=== PATIENT | male | born 1960 | race Caucasian/White ===

== ENCOUNTER 2017-04-30 08:00 | Outpatient (CLI) | payer MEDICAID ==
[2017-04-30 13:05] LABS: BASOPHILS # (AUTO) 0.1 10^3/uL (0.0-0.1); BASOPHILS % (AUTO) 0.8 %; EOSINOPHILS # (AUTO) 0.5 10^3/uL (0.0-0.7); EOSINOPHILS % (AUTO) 6.9 %; HGB - HEMOGLOBIN 14.2 g/dL (14.0-18.0); LYMPHOCYTES # (AUTO) 2.3 10^3/uL (1.5-3.5); LYMPHOCYTES % (AUTO) 33.7 %; MEAN CORPUSCULAR HEMOGLOBIN 30.1 pg (27.0-31.0); MEAN CORPUSCULAR HGB CONC 33.6 g/dL (32.0-36.0); MEAN CORPUSCULAR VOLUME 89.5 fL (80.0-94.0); MEAN PLATELET VOLUME 9.2 fL (7.4-11.4); MONOCYTES # (AUTO) 0.5 10^3/uL (0.0-1.0); MONOCYTES % (AUTO) 7.2 %; NEUTROPHILS # (AUTO) 3.6 10^3/uL (1.5-6.6); NEUTROPHILS % (AUTO) 51.4 %; PLT - PLATELET COUNT 202 10^3/uL (130-450); RED BLOOD COUNT 4.71 10^6/uL (4.70-6.10); RED CELL DISTRIBUTION WIDTH 13.9 % (12.0-15.0)
[2017-04-30 13:13] LABS: HB2 TOTAL 15.5 g/dL; HEMOGLOBIN A1C 0.77 g/dL; HEMOGLOBIN A1C % 6.7 % (4.6-6.2)
[2017-04-30 13:16] LABS: ALBUMIN 4.1 g/dL (3.2-5.5); ALBUMIN/GLOBULIN RATIO 1.2 (1.0-2.2); ALKALINE PHOSPHATASE 52 IU/L (42-121); ALT ALANINE AMINOTRANSFERASE 25 IU/L (10-60); AST ASPARTATE AMINOTRANSFERASE 18 IU/L (10-42); BILIRUBIN,TOTAL 0.6 mg/dL (0.2-1.0); BUN - BLOOD UREA NITROGEN 16 mg/dL (6-20); CALCIUM 9.1 mg/dL (8.5-10.3); CARBON DIOXIDE - CO2 24 mmol/L (21-32); CHLORIDE 103 mmol/L (101-111); CHOL/HDL RATIO 4.4 (<5.0); CHOLESTEROL 169 mg/dL; CREATININE 0.8 mg/dL (0.6-1.2); GFR - MDRD 100 (>89); GLUCOSE 122 mg/dL (70-100); HDL CHOLESTEROL 38 mg/dL; LDL CHOLESTEROL,CALCULATED 109 mg/dL; LDL/HDL RATIO 2.9 (<3.6); SODIUM 134 mmol/L (135-145); TOTAL PROTEIN 7.6 g/dL (6.7-8.2); VLDL CHOLESTEROL 22 mg/dL
== END 2017-04-30 08:01 ==
LOC: LAB.N 08:00
PROVIDERS: ATTEND Nurse Practitioner
DX: E11.9 Type 2 diabetes mellitus without complications (principal); I10 Essential (primary) hypertension; F41.9 Anxiety disorder, unspecified
CPT/HCPCS: 36415; 80053; 80061; 82043; 82306; 83036; 83721; 84153; 84443; 85025

== ENCOUNTER → 2017-08-27 | Outpatient (CLI) | payer MEDICAID | LOC: RT.N 12:13 | PROVIDERS: ATTEND Nurse Practitioner | DX: R07.9 Chest pain, unspecified (principal) | CPT/HCPCS: 93005 ==

== ENCOUNTER 2017-09-25 13:50 | Outpatient (CLI) | payer MEDICAID ==
[2017-09-25 18:55] LABS: BASOPHILS % (AUTO) 0.5 %; EOSINOPHILS # (AUTO) 0.6 10^3/uL (0.0-0.7); EOSINOPHILS % (AUTO) 8.6 %; HGB - HEMOGLOBIN 14.7 g/dL (14.0-18.0); LYMPHOCYTES # (AUTO) 2.2 10^3/uL (1.5-3.5); LYMPHOCYTES % (AUTO) 29.6 %; MEAN CORPUSCULAR HEMOGLOBIN 30.5 pg (27.0-31.0); MEAN CORPUSCULAR VOLUME 92.2 fL (80.0-94.0); MEAN PLATELET VOLUME 9.2 fL (7.4-11.4); MONOCYTES # (AUTO) 0.6 10^3/uL (0.0-1.0); NEUTROPHILS # (AUTO) 3.9 10^3/uL (1.5-6.6); NEUTROPHILS % (AUTO) 53.3 %; PLT - PLATELET COUNT 243 10^3/uL (130-450); RED BLOOD COUNT 4.81 10^6/uL (4.70-6.10); RED CELL DISTRIBUTION WIDTH 14.2 % (12.0-15.0); WHITE BLOOD COUNT 7.3 x10^3/uL (4.8-10.8)
[2017-09-25 19:15] LABS: BILIRUBIN,TOTAL 0.8 mg/dL (0.2-1.0); CALCIUM 9.3 mg/dL (8.5-10.3); CREATININE 0.8 mg/dL (0.6-1.2); TOTAL PROTEIN 7.9 g/dL (6.7-8.2)
[2017-09-25 19:17] LABS: HB2 TOTAL 15.9 g/dL; HEMOGLOBIN A1C 1.07 g/dL; HEMOGLOBIN A1C % 8.3 % (4.6-6.2)
== END 2017-09-25 13:51 ==
LOC: LAB.N 13:50
PROVIDERS: ATTEND Nurse Practitioner
DX: E11.9 Type 2 diabetes mellitus without complications (principal); F41.9 Anxiety disorder, unspecified
CPT/HCPCS: 36415; 80053; 82043; 82306; 83036; 84443; 85025

== ENCOUNTER 2018-01-27 11:13 | Outpatient (CLI) | payer MEDICAID ==
[2018-01-27 19:19] LABS: HB2 TOTAL 15.5 g/dL; HEMOGLOBIN A1C 1.03 g/dL; HEMOGLOBIN A1C % 8.2 % (4.6-6.2)
[2018-01-27 19:21] LABS: ALBUMIN 4.4 g/dL (3.2-5.5); ALBUMIN/GLOBULIN RATIO 1.5 (1.0-2.2); ALKALINE PHOSPHATASE 72 IU/L (42-121); ALT ALANINE AMINOTRANSFERASE 21 IU/L (10-60); AST ASPARTATE AMINOTRANSFERASE 16 IU/L (10-42); BILIRUBIN,TOTAL 0.5 mg/dL (0.2-1.0); BUN - BLOOD UREA NITROGEN 15 mg/dL (6-20); CALCIUM 8.8 mg/dL (8.5-10.3); CARBON DIOXIDE - CO2 24 mmol/L (21-32); CHLORIDE 103 mmol/L (101-111); CHOL/HDL RATIO 3.7 (<5.0); CHOLESTEROL 122 mg/dL; CREATININE 0.8 mg/dL (0.6-1.2); GFR - MDRD 100 (>89); GLUCOSE 147 mg/dL (70-100); HDL CHOLESTEROL 33 mg/dL; LDL CHOLESTEROL,CALCULATED 68 mg/dL; LDL/HDL RATIO 2.1 (<3.6); SODIUM 135 mmol/L (135-145); TOTAL PROTEIN 7.4 g/dL (6.7-8.2); VLDL CHOLESTEROL 21 mg/dL
== END 2018-01-27 11:14 | disposition home or self-care (01) ==
LOC: LAB.N 11:13
PROVIDERS: ATTEND Nurse Practitioner
DX: E11.9 Type 2 diabetes mellitus without complications (principal)
CPT/HCPCS: 36415; 80053; 80061; 82043; 83036; 83721; 84443

== ENCOUNTER 2018-11-17 14:21 | Emergency (ER) | payer MEDICAID ==
[2018-11-17 14:57] LABS: BILIRUBIN,URINE NEGATIVE (NEGATIVE); GLUCOSE, URINE (UA) NEGATIVE (NEGATIVE); KETONES,URINE (UA) 15 mg/dL (NEGATIVE); LEUKOCYTE ESTERASE, URINE NEGATIVE (NEGATIVE); NITRITE,URINE NEGATIVE (NEGATIVE); OCCULT BLOOD,URINE TRACE-LYSE (NEGATIVE); PROTEIN,URINE NEGATIVE (NEGATIVE); UROBILINOGEN,URINE 0.2 (NORMAL) E.U./dL (NORMAL)
[2018-11-17 15:04] LABS: CLARITY,URINE CLEAR (CLEAR)
--- NOTE | 2018-11-17 16:28 | ED Physician Documentation ---
PD HPI NVD - Stated complaint Stated Complaint: DIZZY/SWEATING/MALE - Chief complaint Chief Complaint: General - History obtained from History obtained from: Patient - History of Present Illness Timing - onset: How many days ago (few) Timing - duration: Days (few) Timing - details: Gradual onset, Still present Associated symptoms: Fever (subjective fever and chills), Abdominal pain (left sided), Loss of appetite. No: Melena, Dysuria, Hematuria (but noted dark urine.) Contributing factors: No: Sick contact, Bad food, Travel Similar symptoms before: Has not had sx before Recently seen: Not recently seen Review of Systems Constitutional: reports: Fever, Chills, Myalgias (particularly leg muscles aches) Nose: denies: Rhinorrhea / runny nose, Congestion Throat: denies: Sore throat Respiratory: denies: Cough GI: reports: Abdominal Pain, Nausea, Vomiting. denies: Diarrhea : denies: Dysuria, Frequency Neurologic: reports: Generalized weakness. denies: Focal weakness, Numbness PD PAST MEDICAL HISTORY - Past Medical History Cardiovascular: None Respiratory: None Neuro: None Endocrine/Autoimmune: Type 2 diabetes (had been off meds for awhile and then resumed taking prior Rx of Metformin about a week ago. ) - Present Medications Home Medications: Ambulatory Orders Medication Instructions Recorded Confirmed Amox/Clav 875/125 [Augmentin] 1 each PO Q12H #14 tablet 11/17/18 Naproxen 500 mg PO BID #20 tablet 11/17/18 Ondansetron Odt [Zofran] 4 mg TL Q6H PRN #20 tablet 11/17/18 dexAMETHasone [Decadron] 4 mg PO DAILY #5 tablet 11/17/18 - Allergies Allergies/Adverse Reactions: Allergies Allergy/AdvReac Type Severity Reaction Status Date / Time benzonatate Allergy Anaphylaxis Verified 11/17/18 14:24 [From Marina Cooper] PD ED PE NORMAL - Vitals Vital signs reviewed: Yes - General General: Alert and oriented X 3, No acute distress, Well developed/nourished - HEENT HEENT: Pharynx benign - Neck Neck: Supple, no meningeal sign, No adenopathy - Cardiac Cardiac: RRR, No murmur - Respiratory Respiratory: Clear bilaterally - Abdomen Abdomen: Non distended, Other (tender LLQ with guarding but no rebound. Some percussiont tenderness. ). No: Normal bowel sounds (diminished) - Male Male : Deferred - Rectal Rectal: Deferred - Back Back: No CVA TTP - Derm Derm: Normal color, Warm and dry - Extremities Extremities: No deformity, No tenderness to palpate, Normal ROM s pain, No edema, No calf tenderness / cord - Neuro Neuro: Alert and oriented X 3, No motor deficit, Normal speech Results - Vitals Vitals: Vital Signs - 24 hr 11/17/18 11/17/18 11/17/18 14:24 18:20 19:11 Temperature 36.6 C Heart Rate 130 H 89 78 Respiratory 16 19 19 Rate Blood Pressure 134/100 H 130/77 124/78 O2 Saturation 96 97 99 Oxygen O2 Source Room air - Labs Labs: Laboratory Tests 11/17/18 11/17/18 11/17/18 14:27 14:39 16:59 WBC 18.2 H RBC 5.05 Hgb 15.1 Hct 46.6 MCV 92.3 MCH 29.9 MCHC 32.4 RDW 13.5 Plt Count 212 MPV 11.0 Neut # (Auto) 15.3 H Lymph # (Auto) 1.2 L [place] # (Auto) 1.5 H Eos # (Auto) 0.0 Baso # (Auto) 0.1 Absolute Nucleated RBC 0.00 Nucleated RBC % 0.0 Sodium Potassium Chloride Carbon Dioxide Anion Gap BUN Creatinine Estimated GFR (MDRD) Glucose POC Whole Bld Glucose 156 H Lactic Acid Calcium Magnesium Total Bilirubin AST ALT Alkaline Phosphatase Total Creatine Kinase Total Protein Albumin Globulin Albumin/Globulin Ratio Lipase Urine Color YELLOW Urine Clarity CLEAR Urine pH 6.0 Ur Specific [place] <=1.005 Urine Protein NEGATIVE Urine Glucose (UA) NEGATIVE Urine Ketones 15 H Urine Occult Blood TRACE-LYSE Urine Nitrite NEGATIVE Urine Bilirubin NEGATIVE Urine Urobilinogen 0.2 (NORMAL) Ur Leukocyte Esterase NEGATIVE Ur Microscopic Review NOT INDICATED Urine Culture Comments NOT INDICATED 11/17/18 11/17/18 16:59 16:59 WBC RBC Hgb Hct MCV MCH MCHC RDW Plt Count MPV Neut # (Auto) Lymph # (Auto) [place] # (Auto) Eos # (Auto) Baso # (Auto) Absolute Nucleated RBC Nucleated RBC % Sodium 134 L Potassium 3.8 Chloride 101 Carbon Dioxide 20 L Anion Gap 13.0 BUN 14 Creatinine 0.9 Estimated GFR (MDRD) 87 L Glucose 145 H POC Whole Bld Glucose Lactic Acid 0.9 Calcium 9.3 Magnesium 1.7 Total Bilirubin 1.5 H AST 12 ALT 16 Alkaline Phosphatase 62 Total Creatine Kinase 60 Total Protein 8.3 H Albumin 4.1 Globulin 4.2 Albumin/Globulin Ratio 1.0 Lipase 22 Urine Color Urine Clarity Urine pH Ur Specific [place] Urine Protein Urine Glucose (UA) Urine Ketones Urine Occult Blood Urine Nitrite Urine Bilirubin Urine Urobilinogen Ur Leukocyte Esterase Ur Microscopic Review Urine Culture Comments - Rads (name of study) abd CT Radiology: Prelim report reviewed (diverticula without diverticulitis evident. ), See rad report PD MEDICAL DECISION MAKING - ED course Complexity details: reviewed results (has pain LLQ and elevated WBC, with nausea and some loose stools. Diverticula on CT. Presume some diverticulitis based on symptoms and labs. ), re-evaluated patient (feeling much better with fluids and meds, particularly the ofirmev. ), considered differential, d/w patient Departure - Departure Disposition: 01 Home, Self Care Clinical Impression: Left sided abdominal pain Leukocytosis Qualifiers: Leukocytosis type: unspecified Qualified Code(s): D72.829 - Elevated white blood cell count, unspecified Nausea & vomiting Qualifiers: Vomiting type: unspecified Vomiting Intractability: non-intractable Qualified Code(s): R11.2 - Nausea with vomiting, unspecified Condition: Stable Record reviewed to determine appropriate education?: Yes Instructions: ED Diverticulitis Prescriptions: Amox/Clav 875/125 [Augmentin] 1 each PO Q12H #14 tablet dexAMETHasone [Decadron] 4 mg PO DAILY #5 tablet Naproxen 500 mg PO BID #20 tablet Ondansetron Odt [Zofran] 4 mg TL Q6H PRN #20 tablet PRN Reason: Nausea / Vomiting Comments: Your CT scan showed some diverticula without any obvious diverticulitis (obvious local infection). However your symptoms with the left abdominal tenderness, nausea and less appetite, elevated white count and illness are suggestive of a diverticulitis and so I would treat it as that. Augmentin antibiotic twice daily for a week. Ondansetron if needed for nausea. Naproxen anti-inflammatory and Decadron steroid anti-inflammatory as directed for inflammation. Add Tylenol if needed for pains. Discharge Date/Time: 11/17/18 19:11
[2018-11-17] MEDS ORDERED: ONDANSETRON 4 MG/2 ML VIAL IVP STA (16:42)
[2018-11-17] MEDS ORDERED: SODIUM CHLORIDE 0.9% 1,000 ML IV ONE ×2 (16:42→16:44)
[2018-11-17] MEDS ORDERED: KETOROLAC 15 MG/ML VIAL IVP STA (16:43)
[2018-11-17] MEDS ORDERED: FAMOTIDINE 20 MG/2 ML VIAL IVP STA (16:43)
[2018-11-17 17:07] LABS: BASOPHILS # (AUTO) 0.1 10^3/uL (0.0-0.1); BASOPHILS % (AUTO) 0.3 %; EOSINOPHILS % (AUTO) 0.2 %; HGB - HEMOGLOBIN 15.1 g/dL (14.0-18.0); LYMPHOCYTES # (AUTO) 1.2 10^3/uL (1.5-3.5); LYMPHOCYTES % (AUTO) 6.7 %; MEAN CORPUSCULAR HEMOGLOBIN 29.9 pg (27.0-31.0); MEAN CORPUSCULAR HGB CONC 32.4 g/dL (32.0-36.0); MEAN CORPUSCULAR VOLUME 92.3 fL (80.0-94.0); MONOCYTES # (AUTO) 1.5 10^3/uL (0.0-1.0); MONOCYTES % (AUTO) 8.1 %; NEUTROPHILS # (AUTO) 15.3 10^3/uL (1.5-6.6); NEUTROPHILS % (AUTO) 84.1 %; PLT - PLATELET COUNT 212 10^3/uL (130-450); RED BLOOD COUNT 5.05 10^6/uL (4.70-6.10); RED CELL DISTRIBUTION WIDTH 13.5 % (12.0-15.0); WHITE BLOOD COUNT 18.2 x10^3/uL (4.8-10.8)
--- NOTE | 2018-11-17 17:08 | XRAY Report ---
Reason: cough and dyspnea Procedure Date: 11/17/2018 Accession Number: [id number] / [id number] Procedure: XR - Chest 1 View X-Ray CPT Code: 84332 FULL RESULT: EXAM: CHEST RADIOGRAPHY EXAM DATE: 11/17/2018 04:54 PM. CLINICAL HISTORY: Cough and dyspnea. Abdomen pain. COMPARISON: XR CHEST PA AND LAT 10/08/2009 9:42 PM. TECHNIQUE: 1 view. FINDINGS: Lungs/Pleura: Blunting of the right calcific angle suggesting a small effusion. No focal opacities evident. No left pleural effusion. No pneumothorax. Mediastinum: Within exam limitations, the cardiomediastinal contour is normal. Other: None. IMPRESSION: Small right pleural effusion. RADIA
[2018-11-17 17:20] LABS: ALBUMIN 4.1 g/dL (3.2-5.5); BILIRUBIN,TOTAL 1.5 mg/dL (0.2-1.0); CALCIUM 9.3 mg/dL (8.5-10.3); CREATININE 0.9 mg/dL (0.6-1.2); MAGNESIUM 1.7 mg/dL (1.7-2.8); TOTAL PROTEIN 8.3 g/dL (6.7-8.2)
[2018-11-17] MEDS ORDERED: IOVERSOL 320 100 ML VIAL IVP ONE ×2 (17:49)
[2018-11-17] MEDS ORDERED: ACETAMINOPHEN 1,000 MG/100 ML 100 ML IV STA (18:25)
--- NOTE | 2018-11-17 18:39 | CT Report ---
Reason: left lower abd pain Procedure Date: 11/17/2018 Accession Number: [id number] / [id number] Procedure: CT - Abdomen/Pelvis W CPT Code: FULL RESULT: EXAM: CT ABDOMEN AND PELVIS EXAM DATE: 11/17/2018 05:55 PM. CLINICAL HISTORY: Left lower abd pain. COMPARISONS: None. TECHNIQUE: Routine helical CT imaging was performed through the abdomen and pelvis. IV contrast: OPTI 320 100ML. Enteric contrast: No. Reconstructions: Coronal and sagittal. In accordance with CT protocol optimization, one or more of the following dose reduction techniques were utilized for this exam: automated exposure control, adjustment of mA and/or KV based on patient size, or use of iterative reconstructive technique. FINDINGS: Lung Bases: A small right pleural effusion. Liver: Normal. No masses. Gallbladder/Bile Ducts: Unremarkable. Spleen: Normal. Pancreas: Normal. Adrenal Glands: Normal. Kidneys: Normal. No masses or hydronephrosis. Peritoneal Cavity/Bowel: Normal. No free fluid, free air or adenopathy. No masses or acute inflammatory process. A few colonic diverticula however no diverticulitis. The appendix is well visualized and normal. Pelvic Organs: Normal. The bladder and visualized pelvic organs are within normal limits. Vasculature: No aneurysms or other significant abnormality. Bones: No significant abnormality. Other: None. IMPRESSION: Small right pleural effusion. No acute abdominal pathology. Normal appendix in right lower quadrant. RADIA
[2018-11-17] MEDS ORDERED: cefTRIAXone 1 GM VIAL IVP STA (18:50)
[2018-11-17 19:12] VITALS: BP 124/78
== END 2018-11-17 19:11 | disposition home or self-care (01) ==
LOC: ED 14:21
DX: R10.32 Left lower quadrant pain (principal); R11.2 Nausea with vomiting, unspecified; D72.829 Elevated white blood cell count, unspecified; K57.30 Diverticulosis of large intestine without perforation or abscess without bleeding; E11.9 Type 2 diabetes mellitus without complications; Z79.84 Long term (current) use of oral hypoglycemic drugs
CPT/HCPCS: 36415; 71045; 74177; 80053; 81003; 82550; 83605; 83690; 83735; 85025; 87040; 96361; 96374; 96375; 99284; 99285; J0131; Q9967; 81001; 87086

== ENCOUNTER 2019-02-12 16:41 | Emergency (ER) | payer MEDICAID ==
[2019-02-12 16:52] VITALS: BP 149/79
[2019-02-12] MEDS ORDERED: IPRATROPIUM/ALBUTEROL 3 ML NEB INH STA (17:08)
--- NOTE | 2019-02-12 17:13 | ED Physician Documentation ---
History of Present Illness - Stated complaint Stated Complaint: LT KNEE PX/SLIPPED - Chief complaint Chief Complaint: General - History obtained from History obtained from: Patient - History of Present Illness Timing: How many weeks ago (1) Pain level max: 8 Pain level now: 8 - Additonal information Additional information: 58-year-old male presents the emergency department with a left knee injury approximately 1 week ago. Feels like the knee locks. Has difficulty with extension and walking. Has not had swelling. States main pain is on the medial aspect of the knee. He also complains of a cough and rhinorrhea and congestion for the past week or so. Everybody at home has been sick with the same. He does smoke, states he is not smoking as much since it is hard for him to breathe. Review of Systems Constitutional: denies: Fever, Chills GI: denies: Vomiting, Diarrhea Skin: denies: Rash Musculoskeletal: denies: Neck pain, Back pain Neurologic: denies: Headache PD PAST MEDICAL HISTORY - Past Medical History Cardiovascular: None Respiratory: None Neuro: None Endocrine/Autoimmune: Type 2 diabetes (had been off meds for awhile and then resumed taking prior Rx of Metformin about a week ago. ) - Present Medications Home Medications: Ambulatory Orders Medication Instructions Recorded Confirmed Amox/Clav 875/125 [Augmentin] 1 each PO Q12H #14 tablet 11/17/18 Naproxen 500 mg PO BID #20 tablet 11/17/18 Ondansetron Odt [Zofran] 4 mg TL Q6H PRN #20 tablet 11/17/18 dexAMETHasone [Decadron] 4 mg PO DAILY #5 tablet 11/17/18 Albuterol Sulfate [Proair Hfa 1 - 2 puffs INH Q4H PRN #1 inhaler 02/12/19 Inhaler] Azithromycin [Zithromax] 0 mg PO DAILY #6 tablet 02/12/19 Hydrocodone/Acetaminophen 1 - 2 each PO Q6H PRN #14 tablet 02/12/19 [Hydrocodon-Acetaminophen 5-325] Ibuprofen [Motrin] 800 mg PO Q8H PRN #30 tablet 02/12/19 - Allergies Allergies/Adverse Reactions: Allergies Allergy/AdvReac Type Severity Reaction Status Date / Time benzonatate Allergy Anaphylaxis Verified 02/12/19 16:50 [From Tessalon Perles] - Social History Does the pt smoke?: Yes Smoking Status: Current every day smoker PD ED PE NORMAL - Vitals Vital signs reviewed: Yes - General General: Alert and oriented X 3, No acute distress - HEENT HEENT: PERRL, Ears normal, Moist mucous membranes, Pharynx benign - Neck Neck: Supple, no meningeal sign, No bony TTP - Cardiac Cardiac: RRR, Strong equal pulses - Respiratory Respiratory: No respiratory distress, Other (rhonchi and wheezing B) - Abdomen Abdomen: Soft, Non tender, Non distended - Derm Derm: Warm and dry - Extremities Extremities: Other (L knee - TTP over the medial joint line. no effusion. Click when extending the knee. ACL, MCL, LCL PCL intact. NVI. Pain with meniscus testing on the medial aspect of the knee) - Neuro Neuro: Alert and oriented X 3 Results - Vitals Vitals: Vital Signs - 24 hr 02/12/19 02/12/19 16:50 17:39 Temperature 36.5 C Heart Rate 94 92 Respiratory 17 20 Rate Blood Pressure 149/79 H O2 Saturation 97 Oxygen O2 Source Room air - Rads (name of study) cxr Radiology: Prelim report reviewed, EMP read contemporaneously, See rad report (1. Negative for acute cardiopulmonary process. 2. Inferior right hemithorax pleural fluid versus pleural fibrosis. ) L knee xray Radiology: Prelim report reviewed, EMP read contemporaneously, See rad report (Soft tissue swelling. ) PD MEDICAL DECISION MAKING - ED course Complexity details: reviewed results, re-evaluated patient, considered differential, d/w patient ED course: Patient appears to likely have a meniscus injury on the left knee. Placed in a hinged knee brace, 10 to 40 degrees. He feels better in this. He also appears to be having a COPD flare. We will place on antibiotics and prescribe albuterol for home. He is well-appearing, nontoxic. Afebrile. Patient and family counseled regarding signs and symptoms for which I believe and urgent re- evaluation would be necessary. Patient with good understanding of and agreement to plan and is comfortable going home at this time This document was made in part using voice recognition software. While efforts are made to proofread this document, sound alike and grammatical errors may occur. Departure - Departure Disposition: 01 Home, Self Care Clinical Impression: Meniscus, medial, derangement Qualifiers: Laterality: left Qualified Code(s): M23.304 - Other meniscus derangements, unspecified medial meniscus, left knee Pneumonia Qualifiers: Pneumonia type: due to unspecified organism Laterality: unspecified laterality Lung location: unspecified part of lung Qualified Code(s): J18.9 - Pneumonia, unspecified organism Condition: Good Instructions: ED Meniscal Injury Knee Poss, ED Pneumonia Adult Follow-Up: James Dumont MD [Provider Admit Priv/Credential] - Within 1 week Hill Will PA-C [Primary Care Provider] - Within 1 week Prescriptions: Albuterol Sulfate [Proair Hfa Inhaler] 1 - 2 puffs INH Q4H PRN #1 inhaler PRN Reason: Shortness Of Air/Wheezing Azithromycin [Zithromax] 0 mg PO DAILY #6 tablet Hydrocodone/Acetaminophen [Hydrocodon-Acetaminophen 5-325] 1 - 2 each PO Q6H PRN #14 tablet PRN Reason: pain Ibuprofen [Motrin] 800 mg PO Q8H PRN #30 tablet PRN Reason: PAIN &/OR FEVER Comments: Take all antibiotics until gone. Return if you worsen. Follow-up with orthopedics for further care of your knee. Continue to wear the brace at home. This will help stabilize the joint. Do not drink alcohol or drive while on narcotic pain medicine. Note that many narcotic pain relievers also contain tylenol/acetaminophen. Please ensure that your total dose of acetaminophen from all sources does not exceed 3 grams (3000mg) per day. You may constipated on this medication, take a stool softener such as "Colace" twice a day while you are on it. Also recommend a [id number] laxative such as senna or MiraLAX any day that you do not have a bowel movement. If you received narcotic pain medication in the emergency department, do not drive or operate machinery for the next 24 hours.
[2019-02-12] MEDS ORDERED: oxyCODONE 5 MG TABLET PO STA (17:25)
--- NOTE | 2019-02-12 17:48 | XRAY Report ---
Reason: fall knee pain Procedure Date: 02/12/2019 Accession Number: [id number] / [id number] Procedure: XR - Knee 4 View LT CPT Code: Final Report FULL RESULT: EXAM: LEFT KNEE RADIOGRAPHY EXAM DATE: 02/12/2019 05:22 PM. CLINICAL HISTORY: Fall knee pain. COMPARISON: None. TECHNIQUE: 4 views, including oblique views. FINDINGS: Bones: Normal. No fractures or bone lesions. Joints: Normal. No effusion. No subluxations. Soft Tissues: Mild soft tissue swelling. IMPRESSION: Soft tissue swelling. RADIA
--- NOTE | 2019-02-12 17:51 | XRAY Report ---
Reason: cough, wheeze Procedure Date: 02/12/2019 Accession Number: [id number] / [id number] Procedure: XR - Chest 2 View X-Ray CPT Code: 93153 Final Report FULL RESULT: EXAM: CHEST RADIOGRAPHY EXAM DATE: 02/12/2019 05:23 PM. CLINICAL HISTORY: Cough, wheeze. COMPARISON: CHEST 1 VIEW 11/17/2018 4:38 PM XR CHEST PA AND LAT 10/08/2009 9:42 PM. TECHNIQUE: 2 views. FINDINGS: Lungs/Pleura: No focal opacities evident. No pleural effusion. No pneumothorax. Normal volumes. Inferior right hemithorax pleural fibrosis versus small right pleural fluid. Mediastinum: Heart and mediastinal contours are unremarkable. Other: Ossification of the anterior longitudinal ligament consistent with diffuse idiopathic skeletal hyperostosis. IMPRESSION: 1. Negative for acute cardiopulmonary process. 2. Inferior right hemithorax pleural fluid versus pleural fibrosis. RADIA
== END 2019-02-12 18:01 | disposition home or self-care (01) ==
LOC: ED 16:41
DX: M23.304 Other meniscus derangements, unspecified medial meniscus, left knee (principal); J18.9 Pneumonia, unspecified organism; E11.9 Type 2 diabetes mellitus without complications; Z79.84 Long term (current) use of oral hypoglycemic drugs; F17.200 Nicotine dependence, unspecified, uncomplicated
CPT/HCPCS: 71046; 73564; 94640; 99284; A9270

== ENCOUNTER 2019-03-01 16:55 | Outpatient (CLI) | payer MEDICAID ==
--- NOTE | 2019-03-02 06:58 | MRI Report ---
Reason: SPONTANEOUS DISRUPTION OF MEDIAL COLLATERAL LIGAME Procedure Date: 03/01/2019 Accession Number: [id number] / [id number] Procedure: MRI - Knee LT W/O CPT Code: Final Report FULL RESULT: EXAM: LEFT KNEE MRI WITHOUT CONTRAST EXAM DATE: 03/01/2019 05:41 PM CLINICAL HISTORY: Spontaneous disruption of medial collateral ligament. Medial knee pain. No trauma. No surgery. COMPARISON: Radiographs 02/12/2019. TECHNIQUE: Multiplanar, multisequence T1-weighted and fluid-sensitive sequences of the knee without contrast. Other: None. FINDINGS: Bones: No fracture or bone lesion. Minimal reactive edema in medial compartment. Mild reactive cysts at the tibial spines. Articular Cartilage: Shallow partial-thickness cartilage loss medial and lateral compartments. Medial Meniscus: Horizontal tear contacts the inferior articular surface body and posterior horn. Lateral Meniscus: The lateral meniscus is intact. Cruciate Ligaments: The anterior and posterior cruciate ligaments are intact. Collateral Ligaments: Minimal thickening proximal aspect intact medial collateral ligament. Minimal edema distally. Lateral collateral ligament normal in morphology. Tendons: Mild quadriceps and minimal patellar tendinopathy. Popliteus and semimembranosus tendons unremarkable. Musculature: No edema or fatty atrophy. Other: Minimal joint effusion. Minimal popliteal cyst with leak. No loose bodies. The medial and lateral retinacula are intact. Lobulated 2.3 cm ganglion at the medial head gastrocnemius tendon origin. Small lobulated ganglion proximal and posterior aspect proximal tibiofibular ligament. Posterior component measures 2.2 cm craniocaudal. Mild subcutaneous edema anteriorly. Mild reactive edema in the anterior fat pads. IMPRESSION: 1. Horizontal tear body and posterior horn medial meniscus. 2. Minimal cartilage loss medial and lateral compartments. 3. Reactive edema versus grade 1 sprain medial collateral ligament distally. Mild thickening proximally without edema suggestive of old sprain. 4. Minimal joint effusion. 5. Minimal popliteal cyst with leak. 6. Small proximal tibiofibular joint ganglion. RADIA
== END 2019-03-01 16:56 | disposition home or self-care (01) ==
LOC: DI 16:55
PROVIDERS: ATTEND Orthopaedic Surgery Sports Medicine
DX: S83.242A Other tear of medial meniscus, current injury, left knee, initial encounter (principal); M25.462 Effusion, left knee; M71.22 Synovial cyst of popliteal space [Baker], left knee; M67.462 Ganglion, left knee

== ENCOUNTER 2019-03-16 08:05 | Day surgery (SDC) | payer MEDICAID ==
[~2019-03-16 08:05] MED LIST: SODIUM/POTASSIUM/MAG SULFATES 354 ML PREP KIT PO SCH
[2019-03-16] MEDS ORDERED: LACTATED RINGERS 1,000 ML IV ONE (08:22)
[2019-03-16] MEDS ORDERED: fentaNYL 250 MCG/5 ML VIAL IVP ONE (10:06)
[2019-03-16] MEDS ORDERED: MIDAZOLAM 2 MG/2 ML VIAL IVP ONE (10:06)
[2019-03-16 11:02] VITALS: BP 147/85
== END 2019-03-16 08:06 | disposition home or self-care (01) ==
LOC: SDS 08:05
PROVIDERS: ATTEND Surgery
PROC: 0DBN8ZZ Excision of Sigmoid Colon, Via Natural or Artificial Opening Endoscopic (ICD-10-PCS; principal; 2019-03-16 09:45)
DX: Z12.11 Encounter for screening for malignant neoplasm of colon (principal); K63.5 Polyp of colon; K62.1 Rectal polyp; K64.8 Other hemorrhoids; E66.9 Obesity, unspecified; E11.9 Type 2 diabetes mellitus without complications; I10 Essential (primary) hypertension; F17.210 Nicotine dependence, cigarettes, uncomplicated; Z79.899 Other long term (current) drug therapy; Z79.84 Long term (current) use of oral hypoglycemic drugs; Z80.9 Family history of malignant neoplasm, unspecified; Z68.36 Body mass index [BMI] 36.0-36.9, adult
CPT/HCPCS: 45380; A9270; J7120

== ENCOUNTER 2019-03-20 20:42 | Emergency (ER) | payer MEDICAID ==
[2019-03-20] MEDS ORDERED: NAPROXEN 250 MG TABLET PO STA (21:41)
[2019-03-20] MEDS ORDERED: ACETAMINOPHEN 325 MG TABLET PO STA (21:41)
[2019-03-20 21:59] LABS: BILIRUBIN,URINE NEGATIVE (NEGATIVE); GLUCOSE, URINE (UA) 100 mg/dL (NEGATIVE); KETONES,URINE (UA) TRACE mg/dL (NEGATIVE); LEUKOCYTE ESTERASE, URINE NEGATIVE (NEGATIVE); NITRITE,URINE NEGATIVE (NEGATIVE); OCCULT BLOOD,URINE SMALL (NEGATIVE); PROTEIN,URINE 100 mg/dL (NEGATIVE); UROBILINOGEN,URINE 0.2 (NORMAL) E.U./dL (NORMAL)
[2019-03-20 22:00] LABS: BASOPHILS # (AUTO) 0.1 10^3/uL (0.0-0.1); BASOPHILS % (AUTO) 0.4 %; EOSINOPHILS # (AUTO) 0.1 10^3/uL (0.0-0.7); EOSINOPHILS % (AUTO) 0.3 %; HGB - HEMOGLOBIN 14.6 g/dL (14.0-18.0); LYMPHOCYTES # (AUTO) 1.5 10^3/uL (1.5-3.5); LYMPHOCYTES % (AUTO) 8.8 %; MEAN CORPUSCULAR HGB CONC 33.3 g/dL (32.0-36.0); MEAN CORPUSCULAR VOLUME 89.9 fL (80.0-94.0); MEAN PLATELET VOLUME 10.9 fL (7.4-11.4); MONOCYTES # (AUTO) 1.2 10^3/uL (0.0-1.0); MONOCYTES % (AUTO) 6.8 %; NEUTROPHILS # (AUTO) 14.2 10^3/uL (1.5-6.6); NEUTROPHILS % (AUTO) 83.2 %; PLT - PLATELET COUNT 202 10^3/uL (130-450); RED BLOOD COUNT 4.87 10^6/uL (4.70-6.10); RED CELL DISTRIBUTION WIDTH 13.9 % (12.0-15.0); WHITE BLOOD COUNT 17.1 x10^3/uL (4.8-10.8)
[2019-03-20 22:07] LABS: BILIRUBIN,TOTAL 1.2 mg/dL (0.2-1.0); CALCIUM 9.2 mg/dL (8.5-10.3); CREATININE 0.9 mg/dL (0.6-1.2); MAGNESIUM 1.9 mg/dL (1.7-2.8); TOTAL PROTEIN 8.1 g/dL (6.7-8.2)
[2019-03-20 22:10] LABS: CLARITY,URINE CLEAR (CLEAR)
[2019-03-20 22:11] LABS: BACTERIA,URINE None Seen /HPF (None Seen); RBC,URINE 0-5 /HPF (0-5); SQUAMOUS EPITHELIAL CELL,UR RARE Squamous (<= Few)
[2019-03-20 22:18] LABS: HEMOGLOBIN A1C 1.04 g/dL; HEMOGLOBIN A1C % 8.5 % (4.6-6.2)
--- NOTE | 2019-03-20 22:56 | ED Physician Documentation ---
PD HPI URI - Stated complaint Stated Complaint: HIGH BLOOD SUGAR/ROMO/LUQ PX - Chief complaint Chief Complaint: General - History obtained from History obtained from: Patient - History of Present Illness Timing - onset: Yesterday Timing duration: Days (2) Timing details: Gradual onset, Still present, Waxing and waning Associated symptoms: Chills, Nasal congestion, Sore throat, Dry cough. No: Swollen nodes, Hemoptysis Contributing factors: No: Sick contact, Immunocompromised, COPD / asthma Similar symptoms before: Has not had sx before Recently seen: Not recently seen Review of Systems Constitutional: reports: Myalgias, Fatigue Nose: reports: Congestion Throat: denies: Sore throat Cardiac: denies: Chest pain / pressure, Palpitations Respiratory: reports: Cough (mild) GI: denies: Abdominal Pain, Nausea, Vomiting, Diarrhea Neurologic: reports: Generalized weakness Endocrine: reports: Other (noted his blood sugars to be in the 200s the past couple of days.) PD PAST MEDICAL HISTORY - Past Medical History Past Medical History: Yes Cardiovascular: Hypertension Respiratory: None Neuro: None Endocrine/Autoimmune: Type 2 diabetes GI: None : None HEENT: None Psych: None Musculoskeletal: None Derm: None - Past Surgical History Past Surgical History: No General: Colonoscopy - Present Medications Home Medications: Ambulatory Orders Medication Instructions Recorded Confirmed Naproxen 500 mg PO BID #20 tablet 11/17/18 03/16/19 Ondansetron Odt [Zofran] 4 mg TL Q6H PRN #20 tablet 11/17/18 03/16/19 Albuterol Sulfate [Proair Hfa 1 - 2 puffs INH Q4H PRN #1 inhaler 02/12/19 03/16/19 Inhaler] Azithromycin [Zithromax] 0 mg PO DAILY #6 tablet 02/12/19 03/16/19 Ibuprofen [Motrin] 800 mg PO Q8H PRN #30 tablet 02/12/19 03/16/19 Metformin HCl 1,000 mg PO DAILY 03/16/19 03/16/19 - Allergies Allergies/Adverse Reactions: Allergies Allergy/AdvReac Type Severity Reaction Status Date / Time benzonatate Allergy Anaphylaxis Verified 03/20/19 20:57 [From Marina Cooper] - Social History Does the pt smoke?: No Smoking Status: Former smoker Does the pt drink ETOH?: No Does the pt have substance abuse?: Yes Substance Use and Type: Marijuana - Immunizations Immunizations are current?: Yes - POLST Patient has POLST: No PD ED PE NORMAL - Vitals Vital signs reviewed: Yes - General General: Alert and oriented X 3, No acute distress, Well developed/nourished - HEENT HEENT: Moist mucous membranes, Pharynx benign - Neck Neck: Supple, no meningeal sign, No adenopathy - Cardiac Cardiac: RRR, No murmur - Respiratory Respiratory: Clear bilaterally - Abdomen Abdomen: Soft, Non tender - Male Male : Deferred - Rectal Rectal: Deferred - Back Back: No CVA TTP - Derm Derm: Normal color, Warm and dry - Extremities Extremities: No tenderness to palpate, Normal ROM s pain, No edema, No calf tenderness / cord - Neuro Neuro: Alert and oriented X 3, No motor deficit, Normal speech - Psych Psych: Normal mood. No: Normal affect (somewhat anxious) Results - Vitals Vitals: Vital Signs - 24 hr 03/20/19 03/20/19 20:45 23:18 Temperature 36.8 C 36.6 C Heart Rate 100 96 Respiratory 16 18 Rate Blood Pressure 142/97 H 140/97 H O2 Saturation 96 97 Oxygen O2 Source Room air - Labs Labs: Laboratory Tests 03/20/19 03/20/19 03/20/19 21:50 21:50 21:50 WBC 17.1 H RBC 4.87 Hgb 14.6 Hct 43.8 MCV 89.9 MCH 30.0 MCHC 33.3 RDW 13.9 Plt Count 202 MPV 10.9 Neut # (Auto) 14.2 H Lymph # (Auto) 1.5 [place] # (Auto) 1.2 H Eos # (Auto) 0.1 Baso # (Auto) 0.1 Absolute Nucleated RBC 0.00 Nucleated RBC % 0.0 Sodium 133 L Potassium 3.9 Chloride 99 L Carbon Dioxide 23 Anion Gap 11.0 BUN 15 Creatinine 0.9 Estimated GFR (MDRD) 87 L Glucose 236 H Glycated Hemoglobin 8.5 H Estim Average Glucose 197 H Lactic Acid Calcium 9.2 Magnesium 1.9 Total Bilirubin 1.2 H AST 10 ALT 18 Alkaline Phosphatase 53 Total Protein 8.1 Albumin 4.0 Globulin 4.1 Albumin/Globulin Ratio 1.0 Lipase 29 Urine Color Urine Clarity Urine pH Ur Specific [place] Urine Protein Urine Glucose (UA) Urine Ketones Urine Occult Blood Urine Nitrite Urine Bilirubin Urine Urobilinogen Ur Leukocyte Esterase Urine RBC Urine WBC Ur Squamous Epith Cells Urine Bacteria Ur Microscopic Review Urine Culture Comments Influenza A (Rapid) Influenza B (Rapid) 03/20/19 03/20/19 03/20/19 21:50 21:50 21:50 WBC RBC Hgb Hct MCV MCH MCHC RDW Plt Count MPV Neut # (Auto) Lymph # (Auto) [place] # (Auto) Eos # (Auto) Baso # (Auto) Absolute Nucleated RBC Nucleated RBC % Sodium Potassium Chloride Carbon Dioxide Anion Gap BUN Creatinine Estimated GFR (MDRD) Glucose Glycated Hemoglobin Estim Average Glucose Lactic Acid 1.0 Calcium Magnesium Total Bilirubin AST ALT Alkaline Phosphatase Total Protein Albumin Globulin Albumin/Globulin Ratio Lipase Urine Color YELLOW Urine Clarity CLEAR Urine pH 6.0 Ur Specific [place] 1.020 Urine Protein 100 H Urine Glucose (UA) 100 H Urine Ketones TRACE Urine Occult Blood SMALL H Urine Nitrite NEGATIVE Urine Bilirubin NEGATIVE Urine Urobilinogen 0.2 (NORMAL) Ur Leukocyte Esterase NEGATIVE Urine RBC 0-5 Urine WBC 0-3 Ur Squamous Epith Cells RARE Squamous Urine Bacteria None Seen Ur Microscopic Review INDICATED Urine Culture Comments NOT INDICATED Influenza A (Rapid) Negative Influenza B (Rapid) Negative PD MEDICAL DECISION MAKING - ED course Complexity details: reviewed results (Most likely to think that he has a viral type illness which is causing her sugars to be a bit elevated. I do not think the sugars in the 200s would be giving him the symptoms he is feeling especially given his A1c of 8.5 suggesting his sugars are a bit high commonly. He does not look septic or particularly sick. Basic labs are okay), considered differential (His sugars are not that elevated and so I think he has more of a viral illness causing her sugars to be high rather than his hyperglycemia causing his symptoms as he believes.), d/w patient Departure - Departure Disposition: 01 Home, Self Care Clinical Impression: Hyperglycemia, Acute viral syndrome Condition: Stable Record reviewed to determine appropriate education?: Yes Instructions: ED Viral Syndrome Follow-Up: Hill Will PA-C [Primary Care Provider] - Comments: I think your symptoms sound likely to be a viral illness and your blood sugars resultantly are elevated due to altered metabolism with that. He certainly may be feeling ill somewhat from your sugar being elevated but it is not extremely high. Your A1c is elevated at 8.5 suggesting your sugars run a bit higher anyway. I therefore am less likely to think your sugars being elevated are causing your symptoms but more are the result of a general illness. For the next week increase your metformin to twice daily and stay well-hydrated. Tylenol or ibuprofen if needed for pains, fevers, headache. Recheck if not improved over the next several days or if your sugars are running consistently higher. Discharge Date/Time: 03/20/19 23:19
[2019-03-20 23:19] VITALS: BP 140/97
== END 2019-03-20 23:19 | disposition home or self-care (01) ==
LOC: ED 20:42
DX: B34.9 Viral infection, unspecified (principal); R73.9 Hyperglycemia, unspecified; I10 Essential (primary) hypertension; E11.9 Type 2 diabetes mellitus without complications; Z79.84 Long term (current) use of oral hypoglycemic drugs; Z87.891 Personal history of nicotine dependence
CPT/HCPCS: 36415; 80053; 81001; 83036; 83605; 83690; 83735; 85025; 87275; 87276; 99283; A9270; 81003; 87086

== ENCOUNTER 2019-08-04 08:00 | Outpatient (CLI) | payer MEDICAID ==
[2019-08-04 18:31] LABS: BASOPHILS # (AUTO) 0.1 10^3/uL (0.0-0.1); BASOPHILS % (AUTO) 0.8 %; EOSINOPHILS # (AUTO) 0.6 10^3/uL (0.0-0.7); EOSINOPHILS % (AUTO) 6.5 %; HGB - HEMOGLOBIN 13.5 g/dL (14.0-18.0); LYMPHOCYTES # (AUTO) 1.7 10^3/uL (1.5-3.5); LYMPHOCYTES % (AUTO) 20.2 %; MEAN CORPUSCULAR HGB CONC 32.7 g/dL (32.0-36.0); MEAN CORPUSCULAR VOLUME 94.7 fL (80.0-94.0); MEAN PLATELET VOLUME 11.1 fL (7.4-11.4); MONOCYTES # (AUTO) 0.5 10^3/uL (0.0-1.0); MONOCYTES % (AUTO) 6.4 %; NEUTROPHILS # (AUTO) 5.5 10^3/uL (1.5-6.6); NEUTROPHILS % (AUTO) 65.5 %; PLT - PLATELET COUNT 357 10^3/uL (130-450); RED BLOOD COUNT 4.36 10^6/uL (4.70-6.10); RED CELL DISTRIBUTION WIDTH 14.1 % (12.0-15.0); WHITE BLOOD COUNT 8.4 x10^3/uL (4.8-10.8)
[2019-08-04 18:39] LABS: ALBUMIN 3.9 g/dL (3.2-5.5); BILIRUBIN,TOTAL 0.5 mg/dL (0.2-1.0); CALCIUM 9.1 mg/dL (8.5-10.3); CREATININE 0.9 mg/dL (0.6-1.2); TOTAL PROTEIN 7.9 g/dL (6.7-8.2)
[2019-08-04 18:59] LABS: HB2 TOTAL 14.5 g/dL; HEMOGLOBIN A1C 0.87 g/dL; HEMOGLOBIN A1C % 7.6 % (4.6-6.2)
== END 2019-08-04 23:59 | disposition home or self-care (01) ==
LOC: LAB.WCP 08:00
PROVIDERS: ATTEND Family Medicine
DX: M54.89 Other dorsalgia (principal); E11.9 Type 2 diabetes mellitus without complications; I10 Essential (primary) hypertension; B34.9 Viral infection, unspecified
CPT/HCPCS: 36415; 80053; 83036; 84443; 85025; 86769

== ENCOUNTER 2020-02-21 13:07 | Emergency (ER) | payer MEDICAID ==
[2020-02-21] MEDS ORDERED: SODIUM CHLORIDE 0.9% 1,000 ML IV STA (14:21)
[2020-02-21] MEDS ORDERED: HALOPERIDOL 5 MG/ML VIAL IVP ONE (14:21)
--- NOTE | 2020-02-21 14:28 | ED Physician Documentation ---
PD HPI ABD PAIN - Stated complaint Stated Complaint: MALE - Chief complaint Chief Complaint: Abd Pain - History obtained from History obtained from: Patient - Additional information Additional information: 59-year-old gentleman is a rambling historian with varied complaints. It sounds like it all started a few days ago when he quit smoking both tobacco and heavy THC use. He states he stopped because he was feeling chronically short of breath and just wanted to clear his lungs out. Since then he has developed upper and diffuse abdominal pain as well as urinary frequency. He has had nausea and is not able to keep food or liquid down. He is worried that he might have a UTI because he is using "toys" up there, specifically sounds. He does not think there is a retained foreign body in the bladder. He is also worried that he might have worms, because his cat has worms. He gave the cat a dewormer but he does not think it worked. He relates that 2 years ago his had a [place] [employer] and it had worms, he ate 2 of the dogs dewormers thinking they were brownies. At that point he felt like his "asshole ripped in half." His "asshole feels better now." He is also worried because when he sits down to urinate he feels like his "Jose disappears inside of him and he has to wiggle around to get his jose out." Review of Systems Ten Systems: 10 systems reviewed and negative Constitutional: denies: Fever, Fatigue Ears: denies: Ear pain Nose: denies: Rhinorrhea / runny nose, Congestion Cardiac: denies: Chest pain / pressure, Palpitations Respiratory: reports: Cough. denies: Dyspnea GI: reports: Abdominal Pain, Nausea, Vomiting, Constipation : reports: Dysuria PD PAST MEDICAL HISTORY - Past Medical History Cardiovascular: Hypertension Respiratory: None Neuro: None Endocrine/Autoimmune: Type 2 diabetes GI: None : None HEENT: None Psych: None Musculoskeletal: None Derm: None - Past Surgical History Past Surgical History: No General: Colonoscopy - Present Medications Home Medications: Ambulatory Orders Medication Instructions Recorded Confirmed Albuterol Sulfate [Proair Hfa 1 - 2 puffs INH Q4H PRN #1 inhaler 02/12/19 02/21/20 Inhaler] Metformin HCl 1,000 mg PO DAILY 03/16/19 02/21/20 Albendazole [Albenza] 400 mg PO ONCE #1 tablet 02/21/20 Alcohol Antiseptic Pads [Alcohol 1 each ACHS #120 med..pad 02/21/20 Swabs] Blood Sugar Diagnostic [Glucometer 1 each ACHS #120 strip 02/21/20 Strips] Blood-Glucose Meter [Glucometer] 1 each MC ACHS #1 each 02/21/20 Lancets 1 each ACHS #120 each 02/21/20 Lisinopril [Zestril] 1 tab PO DAILY 02/21/20 02/21/20 Promethazine [Phenergan] 25 mg PO Q6H PRN #14 tab 02/21/20 - Allergies Allergies/Adverse Reactions: Allergies Allergy/AdvReac Type Severity Reaction Status Date / Time benzonatate Allergy Anaphylaxis Verified 02/21/20 13:29 [From Marina Cooper] - Social History Does the pt smoke?: No Smoking Status: Former smoker Does the pt drink ETOH?: No Does the pt have substance abuse?: Yes - Immunizations Immunizations are current?: Yes - POLST Patient has POLST: No PD ED PE NORMAL - Vitals Vital signs reviewed: Yes - General General: Alert and oriented X 3, No acute distress - HEENT HEENT: PERRL, EOMI - Neck Neck: Supple, no meningeal sign, No bony TTP - Cardiac Cardiac: RRR, No murmur - Respiratory Respiratory: No respiratory distress, Clear bilaterally - Abdomen Abdomen: Normal bowel sounds, Soft, Non tender - Back Back: No CVA TTP, No spinal TTP - Derm Derm: Normal color, Warm and dry - Extremities Extremities: No edema, No calf tenderness / cord - Neuro Neuro: Alert and oriented X 3, Normal speech - Psych Psych: Other (Hyperverbal affect but calm and cooperative.) Results - Vitals Vitals: Vital Signs - 24 hr 02/21/20 02/21/20 13:26 15:36 Temperature 36.6 C Heart Rate 107 H 92 Respiratory 20 16 Rate Blood Pressure 154/93 H 127/80 O2 Saturation 93 96 Oxygen O2 Source Room air - Labs Labs: Laboratory Tests 02/21/20 02/21/20 02/21/20 13:32 14:12 14:12 WBC RBC Hgb Hct MCV MCH MCHC RDW Plt Count MPV Neut # (Auto) Lymph # (Auto) [place] # (Auto) Eos # (Auto) Baso # (Auto) Absolute Nucleated RBC Nucleated RBC % Sodium Potassium Chloride Carbon Dioxide Anion Gap BUN Creatinine Estimated GFR (MDRD) Glucose POC Whole Bld Glucose 162 H Calcium Total Bilirubin AST ALT Alkaline Phosphatase Total Protein Albumin Globulin Albumin/Globulin Ratio Lipase Urine Color DARK YELLOW Urine Clarity CLEAR Urine pH 6.0 Ur Specific [place] 1.025 Urine Protein 100 H Urine Glucose (UA) NEGATIVE Urine Ketones 15 H Urine Occult Blood TRACE-INTA Urine Nitrite NEGATIVE Urine Bilirubin NEGATIVE Urine Urobilinogen 1 (NORMAL) Ur Leukocyte Esterase NEGATIVE Urine RBC 0-5 Urine WBC 0-3 Ur Squamous Epith Cells RARE Squamous Urine Bacteria None Seen Urine Mucus Marked Strands Ur Microscopic Review INDICATED Urine Culture Comments NOT INDICATED Urine Opiates Screen NEGATIVE Ur Oxycodone Screen NEGATIVE Urine Methadone Screen NEGATIVE Ur Propoxyphene Screen NEGATIVE Ur Barbiturates Screen NEGATIVE Ur Tricyclics Screen NEGATIVE Ur Phencyclidine Scrn NEGATIVE Ur Amphetamine Screen NEGATIVE U Methamphetamines Scrn NEGATIVE U Benzodiazepines Scrn NEGATIVE Urine Cocaine Screen NEGATIVE U Cannabinoids Screen POSITIVE H 02/21/20 02/21/20 14:24 14:24 WBC 14.5 H RBC 5.08 Hgb 15.2 Hct 45.9 MCV 90.4 MCH 29.9 MCHC 33.1 RDW 13.8 Plt Count 286 MPV 10.9 Neut # (Auto) 11.1 H Lymph # (Auto) 1.8 [place] # (Auto) 1.3 H Eos # (Auto) 0.2 Baso # (Auto) 0.1 Absolute Nucleated RBC 0.00 Nucleated RBC % 0.0 Sodium 131 L Potassium 4.5 Chloride 98 L Carbon Dioxide 21 Anion Gap 12.0 BUN 21 H Creatinine 1.1 Estimated GFR (MDRD) 69 L Glucose 155 H POC Whole Bld Glucose Calcium 9.6 Total Bilirubin 1.0 AST 13 ALT 16 Alkaline Phosphatase 73 Total Protein 9.4 H Albumin 4.2 Globulin 5.2 H Albumin/Globulin Ratio 0.8 L Lipase 23 Urine Color Urine Clarity Urine pH Ur Specific [place] Urine Protein Urine Glucose (UA) Urine Ketones Urine Occult Blood Urine Nitrite Urine Bilirubin Urine Urobilinogen Ur Leukocyte Esterase Urine RBC Urine WBC Ur Squamous Epith Cells Urine Bacteria Urine Mucus Ur Microscopic Review Urine Culture Comments Urine Opiates Screen Ur Oxycodone Screen Urine Methadone Screen Ur Propoxyphene Screen Ur Barbiturates Screen Ur Tricyclics Screen Ur Phencyclidine Scrn Ur Amphetamine Screen U Methamphetamines Scrn U Benzodiazepines Scrn Urine Cocaine Screen U Cannabinoids Screen PD MEDICAL DECISION MAKING - ED course ED course: 59-year-old gentleman presents with a multitude of complaints but benign exam. Feeling better after just IV fluids. He was written for some Haldol for slight sedation and nausea control but he declined it but feel better anyway. His testing shows mild dehydration, mild constipation, otherwise no acute findings. He requested some albendazole which is fairly benign. Also Phenergan. Also needed a new diabetic meter and test strips etc. Departure - Departure Disposition: Home, Self Care Clinical Impression: Hyperglycemia, Dehydration Abdominal pain Qualifiers: Abdominal location: generalized Qualified Code(s): R10.84 - Generalized abdominal pain Constipation Qualifiers: Constipation type: slow transit constipation Qualified Code(s): K59.01 - Slow transit constipation Condition: Stable Record reviewed to determine appropriate education?: Yes Instructions: ED Abdominal Pain Unkn Cause, ED Constipation Prescriptions: Albendazole [Albenza] 400 mg PO ONCE #1 tablet Alcohol Antiseptic Pads [Alcohol Swabs] 1 each ACHS #120 med..pad Blood-Glucose Meter [Glucometer] 1 each MC ACHS #1 each Blood Sugar Diagnostic [Glucometer Strips] 1 each MC ACHS #120 strip Lancets 1 each MC ACHS #120 each Promethazine [Phenergan] 25 mg PO Q6H PRN #14 tab PRN Reason: Nausea / Vomiting Comments: Call your doctor to arrange a follow-up appointment, make the next available appointment. In the interim, return anytime if worse or if new symptoms develop. Discharge Date/Time: 02/21/20 16:27
[2020-02-21 14:32] LABS: MUDS CUTOFF CONCENTRATIONS CUTOFF CONC BELOW:
[2020-02-21 14:34] LABS: BASOPHILS # (AUTO) 0.1 10^3/uL (0.0-0.1); BASOPHILS % (AUTO) 0.4 %; EOSINOPHILS # (AUTO) 0.2 10^3/uL (0.0-0.7); EOSINOPHILS % (AUTO) 1.2 %; HGB - HEMOGLOBIN 15.2 g/dL (14.0-18.0); LYMPHOCYTES # (AUTO) 1.8 10^3/uL (1.5-3.5); LYMPHOCYTES % (AUTO) 12.7 %; MEAN CORPUSCULAR HEMOGLOBIN 29.9 pg (27.0-31.0); MEAN CORPUSCULAR HGB CONC 33.1 g/dL (32.0-36.0); MEAN CORPUSCULAR VOLUME 90.4 fL (80.0-94.0); MEAN PLATELET VOLUME 10.9 fL (7.4-11.4); MONOCYTES # (AUTO) 1.3 10^3/uL (0.0-1.0); MONOCYTES % (AUTO) 8.8 %; NEUTROPHILS # (AUTO) 11.1 10^3/uL (1.5-6.6); NEUTROPHILS % (AUTO) 76.5 %; PLT - PLATELET COUNT 286 10^3/uL (130-450); RED BLOOD COUNT 5.08 10^6/uL (4.70-6.10); RED CELL DISTRIBUTION WIDTH 13.8 % (12.0-15.0); WHITE BLOOD COUNT 14.5 x10^3/uL (4.8-10.8)
[2020-02-21 14:36] LABS: GLUCOSE, URINE (UA) NEGATIVE (NEGATIVE); KETONES,URINE (UA) 15 mg/dL (NEGATIVE); LEUKOCYTE ESTERASE, URINE NEGATIVE (NEGATIVE); NITRITE,URINE NEGATIVE (NEGATIVE); OCCULT BLOOD,URINE TRACE-INTA (NEGATIVE); PROTEIN,URINE 100 mg/dL (NEGATIVE); UROBILINOGEN,URINE 1 (NORMAL) E.U./dL (NORMAL)
[2020-02-21 14:41] LABS: BILIRUBIN,URINE NEGATIVE (NEGATIVE); CLARITY,URINE CLEAR (CLEAR); ICTOTEST,URINE NEGATIVE
[2020-02-21 14:44] LABS: AMPHETAMINE SCREEN,URINE NEGATIVE (NEGATIVE); BENZODIAZEPINES SCREEN, URINE NEGATIVE (NEGATIVE); COCAINE SCREEN URINE NEGATIVE (NEGATIVE); METHADONE SCREEN, URINE NEGATIVE (NEGATIVE); METHAMPHETAMINES SCREEN, URINE NEGATIVE (NEGATIVE); OPIATE SCREEN, URINE NEGATIVE (NEGATIVE); OXYCODONE SCREEN, URINE NEGATIVE (NEGATIVE); PROPOXYPHENE SCREEN, URINE NEGATIVE (NEGATIVE); TRICYCLIC ANTIDEPRESSANT,URINE NEGATIVE (NEGATIVE)
[2020-02-21 14:46] LABS: ALBUMIN 4.2 g/dL (3.2-5.5); ALBUMIN/GLOBULIN RATIO 0.8 (1.0-2.2); CALCIUM 9.6 mg/dL (8.5-10.3); CREATININE 1.1 mg/dL (0.6-1.2); TOTAL PROTEIN 9.4 g/dL (6.7-8.2)
[2020-02-21 14:48] LABS: BACTERIA,URINE None Seen /HPF (None Seen); MUCUS,URINE Marked Strands; RBC,URINE 0-5 /HPF (0-5); SQUAMOUS EPITHELIAL CELL,UR RARE Squamous (<= Few)
[2020-02-21] MEDS ORDERED: IOVERSOL 320 100 ML VIAL IVP ONE ×2 (14:59→17:58)
[2020-02-21 15:36] VITALS: BP 127/80
--- NOTE | 2020-02-21 16:09 | CT Report ---
PROCEDURE: Abdomen/Pelvis W INDICATIONS: IV only, abd pain CONTRAST: IV CONTRAST: Optiray 320 ml: 100 PO CONTRAST: *NO PO CONTRAST TECHNIQUE: After the administration of IV contrast, 5 mm thick sections acquired from the diaphragms to the symp hysis. 5 mm thick coronal and sagittal reformats were acquired. For radiation dose reduction, the f ollowing was used: automated exposure control, adjustment of mA and/or kV according to patient size. COMPARISON: CT abdomen pelvis 11/18/2018 FINDINGS: Image quality: Excellent. ABDOMEN: Lung bases: Lung bases demonstrate mild right effusion, relatively unchanged. Heart size is normal. Solid organs: Liver and spleen are normal in size and enhancement. Hepatic steatosis is present. Gal lbladder is unremarkable Biliary system is non dilated. Pancreas enhances normally. No adrenal nod ules. Kidneys demonstrate normal size and enhancement, without hydronephrosis. Simple right renal c yst is noted. Peritoneum and bowel: Bowel loops demonstrate normal wall thickness and caliber. No free fluid or a ir. Mild to moderate stool. Nodes and vessels: No retroperitoneal or mesenteric adenopathy by size criteria. Aorta and inferior vena cava are normal in size. Miscellaneous: Fat-containing ventral hernia is present. PELVIS: Genitourinary: Bladder wall thickness is normal. Miscellaneous: No inguinal hernias or adenopathy. Bones: No suspicious bony lesions. No vertebral body compression fractures. IMPRESSION: 1. Moderate stool without obstruction. Recommend correlation constipation. Reviewed by: Verna Hong MD on 02/21/2020 4:08 PM PST Approved by: Verna Hong MD on 02/21/2020 4:08 PM PST Station ID: [id number]
[2020-02-21] MEDS ORDERED: ACETAMINOPHEN 325 MG TABLET PO STA (16:19)
== END 2020-02-21 16:27 | disposition home or self-care (01) ==
LOC: ED 13:07
DX: E11.65 Type 2 diabetes mellitus with hyperglycemia (principal); Z79.84 Long term (current) use of oral hypoglycemic drugs; E86.0 Dehydration; K59.01 Slow transit constipation; R10.84 Generalized abdominal pain; R11.2 Nausea with vomiting, unspecified; I10 Essential (primary) hypertension; Z87.891 Personal history of nicotine dependence
CPT/HCPCS: 36415; 74177; 80053; 80306; 81001; 83690; 85025; 96360; 99284; 99285; A9270; Q9967; 81003; 87086

== ENCOUNTER 2020-08-04 07:45 | Outpatient (CLI) | payer MEDICAID ==
[2020-08-04 12:26] LABS: ESTIMATED AVERAGE GLUCOSE 160 mg/dL (70-100); HEMOGLOBIN A1c% 7.2 % (4.27-6.07)
[2020-08-04 12:30] LABS: CREATININE,URINE 98.5 mg/dL; MICROALBUM/CREATININE RATIO,UR 10.2 ug/mg (<30.0)
[2020-08-04 12:33] LABS: BUN - BLOOD UREA NITROGEN 21 mg/dL (6-20); CALCIUM 9.4 mg/dL (8.5-10.3); CARBON DIOXIDE - CO2 26 mmol/L (21-32); CHLORIDE 103 mmol/L (101-111); CHOL/HDL RATIO 5.1 (<5.0); CHOLESTEROL 149 mg/dL; CREATININE 0.9 mg/dL (0.6-1.2); GFR - MDRD 87 (>89); GLUCOSE 133 mg/dL (70-100); HDL CHOLESTEROL 29 mg/dL; LDL CHOLESTEROL,CALCULATED 92 mg/dL; LDL/HDL RATIO 3.2 (<3.6); POTASSIUM 4.5 mmol/L (3.5-5.0); SODIUM 139 mmol/L (135-145); TRIGLYCERIDES 141 mg/dL; VLDL CHOLESTEROL 28 mg/dL
[2020-08-04 12:39] LABS: THYROID STIMULATING HORMONE 2.25 uIU/mL (0.34-5.60)
== END 2020-08-04 23:59 | disposition home or self-care (01) ==
LOC: LAB.N 07:45
PROVIDERS: ATTEND Family Medicine
DX: E11.9 Type 2 diabetes mellitus without complications (principal); I10 Essential (primary) hypertension
CPT/HCPCS: 36415; 80048; 80061; 82043; 82570; 83036; 83721; 84443

== ENCOUNTER 2020-11-21 10:39 | Outpatient (CLI) | payer MEDICAID ==
[2020-11-21 20:54] LABS: ESTIMATED AVERAGE GLUCOSE 157 mg/dL (70-100); HEMOGLOBIN A1c% 7.1 % (4.27-6.07)
== END 2020-11-21 23:59 | disposition home or self-care (01) ==
LOC: LAB.WCP 10:39
PROVIDERS: ATTEND Nurse Practitioner
DX: E11.9 Type 2 diabetes mellitus without complications (principal); Z12.5 Encounter for screening for malignant neoplasm of prostate
CPT/HCPCS: 36415; 83036; 84153

== ENCOUNTER 2021-01-10 17:37 | Emergency (ER) | payer MEDICAID ==
[2021-01-10 18:10] LABS: BILIRUBIN,URINE NEGATIVE (NEGATIVE); GLUCOSE, URINE (UA) NEGATIVE (NEGATIVE); KETONES,URINE (UA) NEGATIVE (NEGATIVE); LEUKOCYTE ESTERASE, URINE MODERATE (NEGATIVE); NITRITE,URINE NEGATIVE (NEGATIVE); OCCULT BLOOD,URINE SMALL (NEGATIVE); PH,URINE 5.5 PH (5.0-7.5); PROTEIN,URINE TRACE mg/dL (NEGATIVE); UROBILINOGEN,URINE 0.2 (NORMAL) E.U./dL (NORMAL)
[2021-01-10 18:12] LABS: CLARITY,URINE HAZY (CLEAR)
[2021-01-10 18:24] LABS: RBC,URINE 0-5 /HPF (0-5); WBC,URINE >25 /HPF (0-3)
[2021-01-10 18:25] LABS: BACTERIA,URINE Moderate /HPF (None Seen); SQUAMOUS EPITHELIAL CELL,UR FEW Squamous (<= Few)
--- NOTE | 2021-01-10 19:33 | ED Physician Documentation ---
PD HPI MALE - Stated complaint Stated Complaint: MALE - Chief complaint Chief Complaint: UTI - History obtained from History obtained from: Patient - History of Present Illness Timing - onset: How many days ago (5-6) Timing - duration: Days Timing - details: Gradual onset, Waxing and waning Pain level now: 0 Associated symptoms: Dysuria, Urinary frequency. No: Unable to urinate, Hematuria, Discharge, Genital sore / lesion, Testiclar pain, Scrotal swelling Similar symptoms before: Diagnosis (similar to previous UTIs (per patient)) Recently seen: Not recently seen - Additional information Additional information: c/o 5-6 days of urinary frequency and burning dysuria. He says these symptoms feel the same as with previous urinary tract infections he's had in the past. He says he drank "about a gallon of apple cider vinegar" (per patient) without change in symptoms. Review of Systems Constitutional: reports: Sweats. denies: Fever, Chills GI: denies: Abdominal Pain : reports: Dysuria, Frequency Musculoskeletal: denies: Back pain PD PAST MEDICAL HISTORY - Past Medical History Past Medical History: Yes Cardiovascular: Hypertension Respiratory: None Neuro: None Endocrine/Autoimmune: Type 2 diabetes GI: None : None HEENT: None Psych: None Musculoskeletal: None Derm: None - Past Surgical History Past Surgical History: No General: Colonoscopy - Present Medications Home Medications: Ambulatory Orders Medication Instructions Recorded Confirmed Albuterol Sulfate [Proair Hfa 1 - 2 puffs INH Q4H PRN #1 inhaler 02/12/19 02/21/20 Inhaler] Metformin HCl 1,000 mg PO DAILY 03/16/19 02/21/20 Albendazole [Albenza] 400 mg PO ONCE #1 tablet 02/21/20 Alcohol Antiseptic Pads [Alcohol 1 each ACHS #120 med..pad 02/21/20 Swabs] Blood Sugar Diagnostic [Glucometer 1 each ACHS #120 strip 02/21/20 Strips] Blood-Glucose Meter [Glucometer] 1 each ACHS #1 each 02/21/20 Lancets 1 each ACHS #120 each 02/21/20 Lisinopril [Zestril] 1 tab PO DAILY 02/21/20 02/21/20 Promethazine [Phenergan] 25 mg PO Q6H PRN #14 tab 02/21/20 Ciprofloxacin HCl 1 tablet PO BID 7 Days #14 tablet 01/10/21 Phenazopyridine HCl [Pyridium] 200 mg PO TID PRN #6 tablet 01/10/21 - Allergies Allergies/Adverse Reactions: Allergies Allergy/AdvReac Type Severity Reaction Status Date / Time benzonatate Allergy Anaphylaxis Verified 01/10/21 17:43 [From Marina Cooper] - Social History Does the pt smoke?: No Smoking Status: Never smoker Does the pt drink ETOH?: No Does the pt have substance abuse?: Yes - Immunizations Immunizations are current?: Yes - POLST Patient has POLST: No PD ED PE NORMAL - Vitals Vital signs reviewed: Yes - General General: Alert and oriented X 3, No acute distress, Well developed/nourished - Abdomen Abdomen: Soft, Non tender - Back Back: No CVA TTP Results - Vitals Vitals: Vital Signs - 24 hr 01/10/21 01/10/21 17:41 19:52 Temperature 36.3 C L Heart Rate 90 79 Respiratory 18 18 Rate Blood Pressure 159/80 H 115/77 O2 Saturation 96 97 Oxygen O2 Source Room air - Labs Labs: Laboratory Tests 01/10/21 17:35 Urine Color YELLOW Urine Clarity HAZY Urine pH 5.5 Ur Specific [place] 1.020 Urine Protein TRACE Urine Glucose (UA) NEGATIVE Urine Ketones NEGATIVE Urine Occult Blood SMALL H Urine Nitrite NEGATIVE Urine Bilirubin NEGATIVE Urine Urobilinogen 0.2 (NORMAL) Ur Leukocyte Esterase MODERATE H Urine RBC 0-5 Urine WBC >25 H Ur Squamous Epith Cells FEW Squamous Urine Bacteria Moderate H Ur Microscopic Review INDICATED Urine Culture Comments INDICATED PD MEDICAL DECISION MAKING - ED course Complexity details: reviewed results, considered differential, d/w patient ED course: presents with 5-6 days of symptoms c/w UTI and urinalysis results support this diagnosis. Given cipro and pyridium in ED with prescriptions for both of these transmitted to [facility] Departure - Departure Disposition: 01 Home, Self Care Clinical Impression: Urinary tract infection Qualifiers: Urinary tract infection type: acute cystitis Hematuria presence: without hematuria Qualified Code(s): N30.00 - Acute cystitis without hematuria Condition: Good Instructions: ED UTI Cystitis Male Follow-Up: Lucrecia James [employer] [Primary Care Provider] - (3-5 days if symptoms persist) Prescriptions: Ciprofloxacin HCl 1 tablet PO BID 7 Days #14 tablet Phenazopyridine HCl [Pyridium] 200 mg PO TID PRN #6 tablet PRN Reason: dysuria Comments: Prescriptions for an antibiotic (ciprofloxacin) and a medication to help reduce the symptoms of urinary tract infection (pyridium) have been electronically s ubmitted to [facility] pharmacy in [place] Discharge Date/Time: 01/10/21 19:53
[2021-01-10] MEDS ORDERED: CIPROFLOXACIN 250 MG TABLET PO STA (19:45)
[2021-01-10] MEDS ORDERED: PHENAZOPYRIDINE 100 MG TABLET PO STA (19:45)
[2021-01-10 19:53] VITALS: BP 115/77
== END 2021-01-10 19:53 | disposition home or self-care (01) ==
LOC: ED 17:37
DX: N30.00 Acute cystitis without hematuria (principal)
CPT/HCPCS: 81001; 87077; 87086; 87181; 99283; A9270; 81003

== ENCOUNTER 2021-02-15 08:00 | Outpatient (CLI) | payer MEDICAID ==
[2021-02-15 21:05] LABS: ESTIMATED AVERAGE GLUCOSE 166 mg/dL (70-100); HEMOGLOBIN A1c% 7.4 % (4.27-6.07)
== END 2021-02-15 23:59 | disposition home or self-care (01) ==
LOC: LAB.WCP 08:00
PROVIDERS: ATTEND Nurse Practitioner
DX: E11.9 Type 2 diabetes mellitus without complications (principal)
CPT/HCPCS: 36415; 83036

== ENCOUNTER 2021-02-22 08:00 | Outpatient (CLI) | payer MEDICAID ==
[2021-02-22 12:33] LABS: BILIRUBIN,URINE NEGATIVE (NEGATIVE); GLUCOSE, URINE (UA) NEGATIVE (NEGATIVE); KETONES,URINE (UA) NEGATIVE (NEGATIVE); LEUKOCYTE ESTERASE, URINE SMALL (NEGATIVE); NITRITE,URINE NEGATIVE (NEGATIVE); OCCULT BLOOD,URINE TRACE-INTA (NEGATIVE); PH,URINE 5.5 PH (5.0-7.5); PROTEIN,URINE NEGATIVE (NEGATIVE); UROBILINOGEN,URINE 0.2 (NORMAL) E.U./dL (NORMAL)
[2021-02-22 12:35] LABS: CLARITY,URINE CLEAR (CLEAR)
[2021-02-22 12:49] LABS: RBC,URINE 0-5 /HPF (0-5); SQUAMOUS EPITHELIAL CELL,UR FEW Squamous (<= Few); WBC CLUMPS,URINE PRESENT; WBC,URINE >25 /HPF (0-3)
[2021-02-22 12:50] LABS: BACTERIA,URINE Few /HPF (None Seen)
== END 2021-02-22 23:59 | disposition home or self-care (01) ==
LOC: LAB.WCP 08:00
PROVIDERS: ATTEND Nurse Practitioner
DX: R30.0 Dysuria (principal)
CPT/HCPCS: 81001; 87077; 87086; 87181

== ENCOUNTER 2021-03-13 18:57 | Outpatient (CLI) | payer MEDICAID | END 2021-03-13 18:58 | disposition critical access hospital (66) | LOC: EMS 18:57 | DX: S09.90XA Unspecified injury of head, initial encounter (principal); W19.XXXA Unspecified fall, initial encounter | CPT/HCPCS: A0425; A0429; A0999 ==

== ENCOUNTER 2021-03-13 19:15 | Emergency (ER) | payer MEDICAID ==
[2021-03-13 19:43] LABS: BASOPHILS # (AUTO) 0.1 10^3/uL (0.0-0.1); BASOPHILS % (AUTO) 0.7 %; EOSINOPHILS # (AUTO) 0.7 10^3/uL (0.0-0.7); EOSINOPHILS % (AUTO) 7.8 %; HCT - HEMATOCRIT 44.4 % (42.0-52.0); HGB - HEMOGLOBIN 14.8 g/dL (14.0-18.0); LYMPHOCYTES # (AUTO) 2.1 10^3/uL (1.5-3.5); LYMPHOCYTES % (AUTO) 24.6 %; MEAN CORPUSCULAR HEMOGLOBIN 30.9 pg (27.0-31.0); MEAN CORPUSCULAR HGB CONC 33.3 g/dL (32.0-36.0); MEAN CORPUSCULAR VOLUME 92.7 fL (80.0-94.0); MONOCYTES # (AUTO) 0.6 10^3/uL (0.0-1.0); MONOCYTES % (AUTO) 6.9 %; NEUTROPHILS # (AUTO) 5.1 10^3/uL (1.5-6.6); NEUTROPHILS % (AUTO) 59.5 %; PLT - PLATELET COUNT 214 10^3/uL (130-450); RED BLOOD COUNT 4.79 10^6/uL (4.70-6.10); WHITE BLOOD COUNT 8.6 x10^3/uL (4.8-10.8)
[2021-03-13 19:50] LABS: INR 1.1 (0.8-1.2); PT - PROTHROMBIN TIME 11.8 secs (9.9-12.6)
[2021-03-13 19:57] LABS: PARTIAL THROMBOPLASTIN TIME 29.5 secs (24.9-33.3)
[2021-03-13 20:03] LABS: ALBUMIN/GLOBULIN RATIO 1.1 (1.0-2.2); ALKALINE PHOSPHATASE 53 IU/L (42-121); ALT ALANINE AMINOTRANSFERASE 19 IU/L (10-60); AST ASPARTATE AMINOTRANSFERASE 15 IU/L (10-42); BILIRUBIN,TOTAL 0.4 mg/dL (0.2-1.0); BUN - BLOOD UREA NITROGEN 18 mg/dL (6-20); CALCIUM 9.1 mg/dL (8.5-10.3); CARBON DIOXIDE - CO2 24 mmol/L (21-32); CHLORIDE 103 mmol/L (101-111); ETOH - ETHANOL < 5.0 mg/dL; GFR - MDRD 77 (>89); GLUCOSE 183 mg/dL (70-100); LIPASE 68 U/L (22-51); POTASSIUM 4.5 mmol/L (3.5-5.0); SODIUM 135 mmol/L (135-145); TOTAL PROTEIN 7.7 g/dL (6.7-8.2)
[2021-03-13] MEDS ORDERED: TETANUS/DIPHTHERIA/PERTUSSIS 0.5 ML SYRINGE IM ONE (20:35)
[2021-03-13] MEDS ORDERED: ACETAMINOPHEN 325 MG TABLET PO STA (20:36)
[2021-03-13] MEDS ORDERED: LIDOCAINE 1%-EPI 1:100000 20 ML MDV SUBQ STA (21:20)
[2021-03-13] MEDS ORDERED: BACITRACIN ZINC OINT 1 PACKET TOP STA (21:20)
--- NOTE | 2021-03-13 21:22 | ED Physician Documentation ---
History of Present Illness - Stated complaint Stated Complaint: GLF, HEAD LAC - Chief complaint Chief Complaint: Trauma Ch/Bk - History obtained from History obtained from: Patient - Additonal information Additional information: 60-year-old man, not on blood thinners, with unknown last tetanus shot presents with fall onto forehead on cement floor. Patient states that he has moved marijuana about an hour prior to arrival and was going up the stairs and then went back down, thinks that he may have gotten dizzy and fell down a few stairs but is unsure how many. Per EMS there were 15 stairs total. Patient sustained a hematoma to his right forehead and is unsure about loss of consciousness. AO x2 on arrival to the ED (identified year as 2000 or 2001), AO x3 after he was corrected and reassessed on return from CT. endorses pain in the head, mild constant aching R anterior rib pain that is not worse with cough or deep breathing, as well as R thigh pain. ambulatory on scene. Review of Systems Unable to obtain: Other (intoxicated with marijuana) PD PAST MEDICAL HISTORY - Past Medical History Past Medical History: Yes Cardiovascular: Hypertension Respiratory: None Neuro: None Endocrine/Autoimmune: Type 2 diabetes GI: None : None HEENT: None Psych: None Musculoskeletal: None Derm: None - Past Surgical History Past Surgical History: Yes General: Colonoscopy - Present Medications Home Medications: Ambulatory Orders Medication Instructions Recorded Confirmed Albuterol Sulfate [Proair Hfa 1 - 2 puffs INH Q4H PRN #1 inhaler 02/12/19 02/21/20 Inhaler] Metformin HCl 1,000 mg PO DAILY 03/16/19 02/21/20 Albendazole [Albenza] 400 mg PO ONCE #1 tablet 02/21/20 Alcohol Antiseptic Pads [Alcohol 1 each ACHS #120 med..pad 02/21/20 Swabs] Blood Sugar Diagnostic [Glucometer 1 each ACHS #120 strip 02/21/20 Strips] Blood-Glucose Meter [Glucometer] 1 each ACHS #1 each 02/21/20 Lancets 1 each ACHS #120 each 02/21/20 Lisinopril [Zestril] 1 tab PO DAILY 02/21/20 02/21/20 Promethazine [Phenergan] 25 mg PO Q6H PRN #14 tab 02/21/20 Ciprofloxacin HCl 1 tablet PO BID 7 Days #14 tablet 01/10/21 Phenazopyridine HCl [Pyridium] 200 mg PO TID PRN #6 tablet 01/10/21 Oxycodone HCl/Acetaminophen 1 each PO Q4H PRN #10 tablet 03/13/21 [Percocet 10-325 mg Tablet] - Allergies Allergies/Adverse Reactions: Allergies Allergy/AdvReac Type Severity Reaction Status Date / Time benzonatate Allergy Anaphylaxis Verified 03/13/21 19:27 [From Marina Cooper] - Social History Does the pt smoke?: No Smoking Status: Never smoker Does the pt drink ETOH?: No Does the pt have substance abuse?: Yes Substance Use and Type: Marijuana - Immunizations Immunizations are current?: Yes - POLST Patient has POLST: No PD ED PE NORMAL - Vitals Vital signs reviewed: Yes - General General: No acute distress, Well developed/nourished, Other (initially AOX2, then AOX3 after reevaluation) - HEENT HEENT: PERRL, EOMI, Moist mucous membranes, Pharynx benign, Other (L frontal hematoma with overlying lac) - Neck Neck: No bony TTP, Other (patient in c collar on arrival. he has distracting injury so c spine cleared only after negative ct) - Cardiac Cardiac: RRR - Respiratory Respiratory: No respiratory distress, Clear bilaterally, Other (R anterior ribcage discomfort with palpation) - Abdomen Abdomen: Non tender, Non distended - Back Back: No spinal TTP - Derm Derm: Normal color, Warm and dry, Other (lac L forehead) - Neuro Neuro: Alert and oriented X 3, signal and communications maintainer 2-12 intact, No motor deficit, No sensory deficit, Normal speech, Other (note initial GCS 14, improving to 15 on reevaluation) Eye Opening: Spontaneous Motor: Obeys Commands Verbal: Confused GCS Score: 14 - Psych Psych: Normal mood, Normal affect Results - Vitals Vitals: Vital Signs - 24 hr 03/13/21 03/13/21 03/13/21 19:27 19:34 19:51 Temperature 36.9 C Heart Rate 100 Respiratory 16 17 16 Rate Blood Pressure 140/90 H O2 Saturation 100 03/13/21 03/13/21 03/13/21 20:18 21:43 21:45 Temperature 36.5 C Heart Rate 78 Respiratory 17 17 18 Rate Blood Pressure 131/84 H O2 Saturation 96 Oxygen O2 Source Room air - EKG (time done) 2312 Rate: Rate (enter#) (68) Rhythm: NSR Kennedy: Normal Intervals: Normal [place] QRS: Normal Ischemia: Normal ST segments - Labs Labs: Laboratory Tests 03/13/21 03/13/21 03/13/21 19:31 19:31 19:31 WBC 8.6 RBC 4.79 Hgb 14.8 Hct 44.4 MCV 92.7 MCH 30.9 MCHC 33.3 RDW 14.0 Plt Count 214 MPV 11.0 Neut # (Auto) 5.1 Lymph # (Auto) 2.1 [place] # (Auto) 0.6 Eos # (Auto) 0.7 Baso # (Auto) 0.1 Absolute Nucleated RBC 0.00 Nucleated RBC % 0.0 PT 11.8 INR 1.1 APTT 29.5 Sodium 135 Potassium 4.5 Chloride 103 Carbon Dioxide 24 Anion Gap 8.0 BUN 18 Creatinine 1.0 Estimated GFR (MDRD) 77 L Glucose 183 H Calcium 9.1 Total Bilirubin 0.4 AST 15 ALT 19 Alkaline Phosphatase 53 Total Protein 7.7 Albumin 4.0 Globulin 3.7 Albumin/Globulin Ratio 1.1 Lipase 68 H Urine Opiates Screen Ur Oxycodone Screen Urine Methadone Screen Ur Propoxyphene Screen Ur Barbiturates Screen Ur Tricyclics Screen Ur Phencyclidine Scrn Ur Amphetamine Screen U Methamphetamines Scrn U Benzodiazepines Scrn Urine Cocaine Screen U Cannabinoids Screen Ethyl Alcohol < 5.0 03/13/21 21:45 WBC RBC Hgb Hct MCV MCH MCHC RDW Plt Count MPV Neut # (Auto) Lymph # (Auto) [place] # (Auto) Eos # (Auto) Baso # (Auto) Absolute Nucleated RBC Nucleated RBC % PT INR APTT Sodium Potassium Chloride Carbon Dioxide Anion Gap BUN Creatinine Estimated GFR (MDRD) Glucose Calcium Total Bilirubin AST ALT Alkaline Phosphatase Total Protein Albumin Globulin Albumin/Globulin Ratio Lipase Urine Opiates Screen NEGATIVE Ur Oxycodone Screen NEGATIVE Urine Methadone Screen NEGATIVE Ur Propoxyphene Screen NEGATIVE Ur Barbiturates Screen NEGATIVE Ur Tricyclics Screen NEGATIVE Ur Phencyclidine Scrn NEGATIVE Ur Amphetamine Screen NEGATIVE U Methamphetamines Scrn NEGATIVE U Benzodiazepines Scrn NEGATIVE Urine Cocaine Screen NEGATIVE U Cannabinoids Screen POSITIVE H Ethyl Alcohol PD MEDICAL DECISION MAKING - ED course ED course: 60yM presents with head injury s/p fall, likely down several stairs. acutely intoxicated with marijuana, with rapidly improving mental status. CT and XR imaging obtained. Trauma work-up negative in the emergency department. CXR stable from previous. Laceration repaired without difficulty. Advised patient to follow-up in 10 days for suture removal. Patient now stating that he thinks he had COVID last week since he had URI symptoms at that time and was feeling short of breath. It has now improved and he denies any lower orthopnea, leg swelling, dyspnea on exertion or cough. His doctor referred him last year for cardiac testing but he still has not gone. I advised him to follow-up urgently. We do not have echocardiogram in-house this week however I advised him that he should ask his doctor about getting a echo since it is unclear whether he passed out prior to falling. Strict return precautions discussed. Patient will follow-up with his primary for referral to cardiology. Departure - Departure Disposition: 01 Home, Self Care Clinical Impression: Fall down stairs, Marijuana use, Laceration of forehead Condition: Stable Instructions: ED Laceration All Follow-Up: Jen Burrows MD [Provider Admit Priv/Credential] - Prescriptions: Oxycodone HCl/Acetaminophen [Percocet 10-325 mg Tablet] 1 each PO Q4H PRN #10 tablet PRN Reason: Pain Comments: You are seen in the emergency department for evaluation after a fall. Your head CT and cervical spine CT was normal. You do not have any breaks in the bones on x-ray. Please follow-up with your primary doctor for referral to cardiology. You should really have a repeat echocardiogram as soon as possible given that you may have passed out tonight. Try to cut back on your marijuana use. Please also have your stitches removed by a medical professional in 10 days. Return to the emergency department if you have any new or worsening symptoms or other concerns. A prescription for pain medicine was sent to [facility] electronically. Please dispose of unused pills at your local patrol sergeant sheriff's office office or local pharmacy. Do not drive or operate heavy machinery while taking these pills. Take a stool softener and laxative like senna/docusate and miralax if you have constipation problems.
--- NOTE | 2021-03-13 21:29 | XRAY Report ---
PROCEDURE: Femur 2V RT INDICATIONS: R thigh pain s/p fall TECHNIQUE: 2 views of the femur were acquired. COMPARISON: None. FINDINGS: Bones: No fractures or dislocations. No suspicious bony lesions. Soft tissues: No suspicious soft tissue calcifications or masses. IMPRESSION: No visualized acute fracture or dislocation. However, occult injury cannot be excluded. Recommend dolly rt interval imaging follow-up in 7-10 days as clinically indicated for additional evaluation. Reviewed by: Verna Hong MD on 03/13/2021 9:28 PM PST Approved by: Verna Hong MD on 03/13/2021 9:28 PM PST Station ID: [id number]
--- NOTE | 2021-03-13 21:29 | XRAY Report ---
PROCEDURE: Chest 1 View X-Ray INDICATIONS: R ribcage pain s/p fall down unknown number stairs TECHNIQUE: One view of the chest was acquired. COMPARISON: Chest x-ray 02/12/2019 FINDINGS: Surgical changes and devices: None. Lungs and pleura: There is blunting of the right costophrenic angle. Mediastinum: Mediastinal contours appear normal. Heart size is normal. Bones and chest wall: No suspicious bony lesions. Overlying soft tissues appear unremarkable. IMPRESSION: Right costophrenic angle blunting, most consistent with effusion. Ribs are difficult to visualize wit hin this region although no gross fractures identified. If this is of concern, rib series is recommen ded. Reviewed by: Verna Hong MD on 03/13/2021 9:28 PM PST Approved by: Verna Hong MD on 03/13/2021 9:28 PM [facility] Station ID: [id number]
--- NOTE | 2021-03-13 21:30 | XRAY Report ---
PROCEDURE: Pelvis 1 View INDICATIONS: trauma s/p fall TECHNIQUE: 1 view(s) of the pelvis acquired. COMPARISON: None FINDINGS: Bones: No fractures or dislocations. No suspicious bony lesions. Soft tissues: Visualized bowel gas pattern is normal. No suspicious soft tissue calcifications. IMPRESSION: No visualized acute fracture or dislocation. However, occult injury cannot be excluded. Recommend short interval imaging follow-up in 7-10 days as clinically indicated for additional evalua tion. Reviewed by: Verna Hong MD on 03/13/2021 9:29 PM PST Approved by: Verna Hong MD on 03/13/2021 9:29 PM PST Station ID: [id number]
--- NOTE | 2021-03-13 21:31 | CT Report ---
PROCEDURE: CERVICAL SPINE WO INDICATIONS: Neck trauma, midline tenderness TECHNIQUE: Noncontrast 3 mm thick sections acquired from the skull base to the T4 level. Sagittal and coronal r eformats were then constructed. For radiation dose reduction, the following was used: automated exp osure control, adjustment of mA and/or kV according to patient size. COMPARISON: CT 03/13/2021. FINDINGS: Image quality: Excellent. Bones: No fractures or dislocations. Visualized superior ribs are intact. Multilevel degenerative changes are present. There are most notable at C5-6 and C6-7 with anterior osteophytes. Soft tissues: Prevertebral soft tissues are normal in thickness. No paravertebral hematomas. No ap ical pneumothoraces. IMPRESSION: Degenerative changes without visualized fracture. Reviewed by: Verna Hong MD on 03/13/2021 9:30 PM PST Approved by: Verna Hong MD on 03/13/2021 9:30 PM PST Station ID: [id number]
--- NOTE | 2021-03-13 21:33 | CT Report ---
PROCEDURE: HEAD WO INDICATIONS: Head trauma, mod-severe TECHNIQUE: Noncontrast 4.5 mm thick angled axial sections acquired from the foramen magnum to the vertex. For r adiation dose reduction, the following was used: automated exposure control, adjustment of mA and/or kV according to patient size. COMPARISON: None. FINDINGS: Image quality: Excellent. CSF spaces: Basal cisterns are patent. No extra-axial fluid collections. Ventricles are normal in size and shape. Brain: No midline shift. No intracranial masses or hemorrhage. Zazueta-white matter interface is norm al. Skull and face: Calvarium and visualized facial bones are intact, without suspicious lesions. Mild right frontal scalp hematoma. Sinuses: Visualized sinuses and mastoids are clear. IMPRESSION: 1. No acute intracranial process. Reviewed by: Verna Hong MD on 03/13/2021 9:32 PM [facility] Approved by: Verna Hong MD on 03/13/2021 9:32 PM [facility] Station ID: [id number]
[2021-03-13 21:51] LABS: MUDS CUTOFF CONCENTRATIONS CUTOFF CONC BELOW:
[2021-03-13] MEDS ORDERED: oxyCODONE 5 MG TABLET PO STA ×2 (22:08→23:06)
[2021-03-13 22:11] LABS: AMPHETAMINE SCREEN,URINE NEGATIVE (NEGATIVE); BARBITURATE SCREEN,UR NEGATIVE (NEGATIVE); BENZODIAZEPINES SCREEN, URINE NEGATIVE (NEGATIVE); COCAINE SCREEN URINE NEGATIVE (NEGATIVE); METHADONE SCREEN, URINE NEGATIVE (NEGATIVE); METHAMPHETAMINES SCREEN, URINE NEGATIVE (NEGATIVE); OPIATE SCREEN, URINE NEGATIVE (NEGATIVE); OXYCODONE SCREEN, URINE NEGATIVE (NEGATIVE); PROPOXYPHENE SCREEN, URINE NEGATIVE (NEGATIVE); THC CANNABINOID SCREEN, URINE POSITIVE (NEGATIVE); TRICYCLIC ANTIDEPRESSANT,URINE NEGATIVE (NEGATIVE)
[2021-03-13 23:55] VITALS: BP 130/79
== END 2021-03-13 23:54 | disposition home or self-care (01) ==
LOC: EDUNIT# → ED 19:15
DX: S01.81XA Laceration without foreign body of other part of head, initial encounter (principal); W10.9XXA Fall (on) (from) unspecified stairs and steps, initial encounter; Y92.009 Unspecified place in unspecified non-institutional (private) residence as the place of occurrence of the external cause; M79.651 Pain in right thigh; R07.81 Pleurodynia; I10 Essential (primary) hypertension; E11.9 Type 2 diabetes mellitus without complications; Z79.4 Long term (current) use of insulin; Z23 Encounter for immunization; Z71.85 Encounter for immunization safety counseling
CPT/HCPCS: 12011; 36415; 70450; 71045; 72125; 72170; 73552; 80053; 80306; 80320; 83690; 85025; 85610; 85730; 90471; 90715; 93005; 99284; 99285; A9270

== ENCOUNTER 2021-05-23 13:48 | Outpatient (CLI) | payer MEDICAID ==
--- NOTE | 2021-05-24 08:32 | MRI Report ---
PROCEDURE: Brain W/O INDICATIONS: MENTAL STATUS CHANGE TECHNIQUE: Noncontrast axial T1 spin echo, axial T2 fast spin echo, sagittal and axial FLAIR, coronal T2 fast sp in echo, axial gradient echo, axial diffusion and ADC through the brain. COMPARISON: None. FINDINGS: Image quality: Excellent. CSF Spaces: Basal cisterns are patent. No extra-axial fluid collections. Ventricles are normal in size and shape. Brain: No intracranial masses or hemorrhage. Zazueta/white matter interface is normal. Mild diffuse c erebral volume loss. Minimal degree of patchy high FLAIR signal intensity punctate foci within the pe riventricular and subcortical white matter. Brainstem appears normal. Diffusion-weighted images demo nstrate no acute ischemic insult. No chronic ischemic insults. Normal intravascular flow voids are present. Skull and face: Calvarium has normal marrow signal. Orbits appear normal. Sinuses: There is mild mucosal thickening within the bilateral maxillary and sphenoid sinuses. Modera te mucosal thickening in the bilateral ethmoid sinuses. Mild bilateral frontal sinus mucosal thickeni ng. Mastoids clear. IMPRESSION: 1. Mild volume loss. Minimal small vessel ischemic disease. 2. No acute process. No recent infarct. 3. Sinus disease. Reviewed by: Roldan Rodriguez MD on 05/24/2021 8:31 AM PDT Approved by: Roldan Rodriguez MD on 05/24/2021 8:31 AM PDT Station ID: [id number]
== END 2021-05-23 13:49 | disposition home or self-care (01) ==
LOC: DI 13:48
PROVIDERS: ATTEND Nurse Practitioner
DX: J32.9 Chronic sinusitis, unspecified (principal); R41.82 Altered mental status, unspecified

== ENCOUNTER 2021-12-27 15:42 | Emergency (ER) | payer MEDICAID ==
--- NOTE | 2021-12-27 17:03 | XRAY Report ---
PROCEDURE: Hip w/Pelvis 2-3V RT INDICATIONS: fall/pain TECHNIQUE: AP pelvis with lateral view(s) of the right hip(s). COMPARISON: None. FINDINGS: Bones: No fractures or dislocations. Pelvic ring appears intact. Mild symmetric degenerative almaraz e in both femoral acetabular joints. No suspicious bony lesions. Soft tissues: The visualized bowel gas pattern is normal. No suspicious soft tissue calcifications. IMPRESSION: 1. No fractures. 2. Minor hip joint degeneration bilaterally. Reviewed by: Stephanie Way MD on 12/27/2021 4:02 PM [facility] Approved by: Stephanie Way MD on 12/27/2021 4:02 PM [facility] Station ID: [id number]
[2021-12-27] MEDS ORDERED: LIDOCAINE PATCH 5% TOP STA (17:35)
[2021-12-27] MEDS ORDERED: ACETAMINOPHEN 325 MG TABLET PO STA (17:35)
[2021-12-27] MEDS ORDERED: oxyCODONE 5 MG TABLET PO STA (17:35)
--- NOTE | 2021-12-27 17:39 | ED Physician Documentation ---
PD HPI LOWER EXT INJURY - Stated complaint Stated Complaint: HIP Pain - Chief complaint Chief Complaint: Trauma Ext - History obtained from History obtained from: Patient - Additional information Additional information: Patient is a 61-year-old male presenting for evaluation of right hip pain that has been present for 2 days. He tripped and fell over his cat 2 nights ago and landed on his right hip. He has been able to ambulate but does occasionally get sharp pains. He notices the pain more at night and has been having trouble sleeping. He has tried ttlg-elx-erlbhuk medications with Aleve and ibuprofen without improvement.He denies hitting his head or LOC. He denies pain elsewhere. He does not use a blood thinner. Review of Systems Constitutional: denies: Fever Nose: denies: Congestion Cardiac: denies: Chest pain / pressure Respiratory: denies: Dyspnea GI: denies: Abdominal Pain Musculoskeletal: reports: Joint pain Neurologic: denies: Headache, Head injury PD PAST MEDICAL HISTORY - Past Medical History Cardiovascular: Hypertension Respiratory: None Neuro: None Endocrine/Autoimmune: Type 2 diabetes GI: None : None HEENT: None Psych: None Musculoskeletal: None Derm: None - Past Surgical History Past Surgical History: Yes General: Colonoscopy - Present Medications Home Medications: Ambulatory Orders Medication Instructions Recorded Confirmed Albuterol Sulfate [Proair Hfa 1 - 2 puffs INH Q4H PRN #1 inhaler 02/12/19 02/21/20 Inhaler] Metformin HCl 1,000 mg PO DAILY 03/16/19 02/21/20 Albendazole [Albenza] 400 mg PO ONCE #1 tablet 02/21/20 Alcohol Antiseptic Pads [Alcohol 1 each ACHS #120 med..pad 02/21/20 Swabs] Blood Sugar Diagnostic [Glucometer 1 each ACHS #120 strip 02/21/20 Strips] Blood-Glucose Meter [Glucometer] 1 each ACHS #1 each 02/21/20 Lancets 1 each ACHS #120 each 02/21/20 Lisinopril [Zestril] 1 tab PO DAILY 02/21/20 02/21/20 Promethazine [Phenergan] 25 mg PO Q6H PRN #14 tab 02/21/20 Ciprofloxacin HCl 1 tablet PO BID 7 Days #14 tablet 01/10/21 Phenazopyridine HCl [Pyridium] 200 mg PO TID PRN #6 tablet 01/10/21 Oxycodone HCl/Acetaminophen 1 each PO Q4H PRN #10 tablet 03/13/21 [Percocet 10-325 mg Tablet] Lidocaine Patch 5% [Lidoderm Patch] 1 patch TOP DAILY PRN #10 patch 12/27/21 Oxycodone HCl/Acetaminophen 1 each PO Q6H PRN #14 tablet 12/27/21 [Percocet 5-325 mg Tablet] - Allergies Allergies/Adverse Reactions: Allergies Allergy/AdvReac Type Severity Reaction Status Date / Time benzonatate Allergy Anaphylaxis Verified 12/27/21 15:51 [From Marina Cooper] - Social History Does the pt smoke?: No Smoking Status: Never smoker Does the pt drink ETOH?: No Does the pt have substance abuse?: Yes - Immunizations Immunizations are current?: Yes - POLST Patient has POLST: No PD ED PE NORMAL - General General: Alert and oriented X 3, No acute distress, Well developed/nourished - HEENT HEENT: Atraumatic, Moist mucous membranes - Neck Neck: Supple, no meningeal sign - Cardiac Cardiac: RRR, Strong equal pulses - Respiratory Respiratory: No respiratory distress, Clear bilaterally - Abdomen Abdomen: Soft, Non tender, Non distended - Extremities Extremities: No deformity, No tenderness to palpate (Pain is not reproducible, reports pain comes in sudden jolts with certain movements.), Normal ROM s pain (Allows for passive range of motion at right hip without pain,), No edema, Other (Pedal pulses intact; Able to ambulate from chair to stretcher and get himself on top without significant discomfort. Able to push himself back in the bed with his right leg.) - Neuro Neuro: No motor deficit, No sensory deficit Results - Vitals Vitals: Vital Signs - 24 hr 12/27/21 12/27/21 15:51 18:07 Temperature 36.5 C Heart Rate 86 76 Respiratory 16 20 Rate Blood Pressure 144/83 H 130/90 H O2 Saturation 96 97 Oxygen O2 Source Room air PD MEDICAL DECISION MAKING - ED course Complexity details: reviewed results, re-evaluated patient ED course: Pt with R hip pain after fall 2 days ago. No deformities, pt ambulating and allows for good ROM at hip joint. Xray negative. Low concern for occult fracture given exam. Pt having trouble sleeping at night. Will give small amount of pain meds. Aware of need for PCP follow up as well as concerning symptoms to return for. Departure - Departure Disposition: 01 Home, Self Care Clinical Impression: Strain of right hip Qualifiers: Encounter type: initial encounter Qualified Code(s): S76.011A - Strain of muscle, fascia and tendon of right hip, initial encounter Condition: Stable Instructions: ED Sprain Hip Prescriptions: Lidocaine Patch 5% [Lidoderm Patch] 1 patch TOP DAILY PRN #10 patch PRN Reason: pain Oxycodone HCl/Acetaminophen [Percocet 5-325 mg Tablet] 1 each PO Q6H PRN #14 tablet PRN Reason: pain Comments: You have an injury to your right hip. Your x-ray does not show a broken or out of place bone and you did allow me to range of motion at the hip quite easily.Therefore I do not suspect an occult fracture that we are not seeing on the x-ray. I have sent a prescription for pain medication to [facility] in [place]. Please continue with ice, rest, anti-inflammatories.If pain is not improving, please consider return to the ER or follow-up with your primary care doctor. I am prescribing a short course of narcotic pain medication for you. These are potentially dangerous and addictive medications that should be used carefully. These medications may constipate you. Take an qcvs-jjw-pwyajjh stool softener ( docusate) twice daily with plenty of water while taking these medications. If you go 24 hours without a bowel movement, take grnv-dib-byemkld miralax, per package instructions. Do not drink or drive while taking these medications. If you received narcotic or sedating medications while in the emergency department, do not drive for 24 hours. Store this medication in a safe, secure place and out of reach of children. It is a violation of federal law to give or sell this medication to another person or to use in a manner other than prescribed. The ED will not refill narcotic prescriptions, including prescriptions lost or stolen. To dispose of unwanted medications: 1. [facility] [address] in [place] has a medication drop box. They accept prescription medications (in pill form) Friday through Friday 9:00 a.m. to 5:00 p.m. 2. The [facility] [employer] accepts prescription medications (in pill form only) for disposal year round. Call for more information. 3. Contact the [facility] for the next [facility] sponsored prescription drug collection event. , [phone], or [phone]; Note that many narcotic pain relievers also contain Tylenol/acetaminophen. Please ensure that your total dose of acetaminophen from all sources does not exceed 3 g (3000 mg) per day. Discharge Date/Time: 12/27/21 18:08
[2021-12-27 18:08] VITALS: BP 130/90
== END 2021-12-27 18:08 | disposition home or self-care (01) ==
LOC: ED 15:42
DX: S76.011A Strain of muscle, fascia and tendon of right hip, initial encounter (principal); W01.0XXA Fall on same level from slipping, tripping and stumbling without subsequent striking against object, initial encounter
CPT/HCPCS: 73502; 99282; 99283; A9270

== ENCOUNTER 2022-04-25 13:49 | Outpatient (CLI) | payer MEDICAID ==
[2022-04-25 17:35] LABS: BASOPHILS # (AUTO) 0.1 10^3/uL (0.0-0.1); BASOPHILS % (AUTO) 0.7 %; EOSINOPHILS # (AUTO) 0.7 10^3/uL (0.0-0.7); EOSINOPHILS % (AUTO) 8.5 %; HCT - HEMATOCRIT 46.8 % (42.0-52.0); HGB - HEMOGLOBIN 15.2 g/dL (14.0-18.0); LYMPHOCYTES # (AUTO) 2.5 10^3/uL (1.5-3.5); LYMPHOCYTES % (AUTO) 28.6 %; MEAN CORPUSCULAR HEMOGLOBIN 29.5 pg (27.0-31.0); MEAN CORPUSCULAR HGB CONC 32.5 g/dL (32.0-36.0); MEAN CORPUSCULAR VOLUME 90.9 fL (80.0-94.0); MEAN PLATELET VOLUME 11.6 fL (7.4-11.4); MONOCYTES # (AUTO) 0.5 10^3/uL (0.0-1.0); MONOCYTES % (AUTO) 5.6 %; NEUTROPHILS # (AUTO) 4.9 10^3/uL (1.5-6.6); NEUTROPHILS % (AUTO) 56.3 %; PLT - PLATELET COUNT 216 10^3/uL (130-450); RED BLOOD COUNT 5.15 10^6/uL (4.70-6.10); WHITE BLOOD COUNT 8.7 x10^3/uL (4.8-10.8)
[2022-04-25 17:59] LABS: ALBUMIN 4.1 g/dL (3.2-5.5); ALBUMIN/GLOBULIN RATIO 1.1 (1.0-2.2); ALKALINE PHOSPHATASE 63 IU/L (42-121); ALT ALANINE AMINOTRANSFERASE 27 IU/L (10-60); AST ASPARTATE AMINOTRANSFERASE 18 IU/L (10-42); BILIRUBIN,TOTAL 0.5 mg/dL (0.2-1.0); BUN - BLOOD UREA NITROGEN 15 mg/dL (6-20); CALCIUM 9.8 mg/dL (8.5-10.3); CARBON DIOXIDE - CO2 27 mmol/L (21-32); CHLORIDE 101 mmol/L (101-111); CHOL/HDL RATIO 3.8 (<5.0); CHOLESTEROL 147 mg/dL; GFR - MDRD 76 (>89); GLUCOSE 282 mg/dL (70-100); HDL CHOLESTEROL 39 mg/dL; LDL CHOLESTEROL,CALCULATED 77 mg/dL; POTASSIUM 4.9 mmol/L (3.5-5.0); SODIUM 136 mmol/L (135-145); TRIGLYCERIDES 157 mg/dL; VLDL CHOLESTEROL 31 mg/dL
[2022-04-25 18:03] LABS: CREATININE,URINE 118.5 mg/dL; MICROALBUM/CREATININE RATIO,UR 132.5 ug/mg (<30.0); MICROALBUMIN,URINE 15.7 mg/dL (0-300.0)
[2022-04-25 18:09] LABS: THYROID STIMULATING HORMONE 1.49 uIU/mL (0.34-5.60)
[2022-04-25 21:56] LABS: ESTIMATED AVERAGE GLUCOSE 260 mg/dL (70-100); HEMOGLOBIN A1c% 10.7 % (4.27-6.07)
== END 2022-04-25 13:50 | disposition home or self-care (01) ==
LOC: LAB.N 13:49
PROVIDERS: ATTEND Nurse Practitioner
DX: E11.9 Type 2 diabetes mellitus without complications (principal); E78.5 Hyperlipidemia, unspecified; R53.83 Other fatigue
CPT/HCPCS: 36415; 80053; 80061; 82043; 82570; 83036; 83721; 84153; 84443; 85025

== ENCOUNTER 2022-09-13 11:17 | Outpatient (CLI) | payer MEDICAID ==
[2022-09-13 20:56] LABS: ESTIMATED AVERAGE GLUCOSE 143 mg/dL (70-100); HEMOGLOBIN A1c% 6.6 % (4.27-6.07)
== END 2022-09-13 11:18 | disposition home or self-care (01) ==
LOC: LAB.N 11:17
PROVIDERS: ATTEND Nurse Practitioner
DX: E11.9 Type 2 diabetes mellitus without complications (principal)
CPT/HCPCS: 36415; 83036

== ENCOUNTER 2022-09-16 08:00 | Outpatient (CLI) | payer MEDICAID | END 2022-09-16 23:59 | disposition home or self-care (01) | LOC: LAB.N 08:00 | PROVIDERS: ATTEND Physician Assistant Medical | DX: R30.0 Dysuria (principal) | CPT/HCPCS: 87086 ==

== ENCOUNTER 2022-11-14 13:52 | Outpatient (CLI) | payer MEDICAID ==
[2022-11-14 17:48] LABS: ALBUMIN 4.5 g/dL (3.2-5.5); ALBUMIN/GLOBULIN RATIO 1.4 (1.0-2.2); BASOPHILS # (AUTO) 0.1 10^3/uL (0.0-0.1); BASOPHILS % (AUTO) 0.6 %; BILIRUBIN,TOTAL 0.4 mg/dL (0.2-1.0); CALCIUM 9.9 mg/dL (8.5-10.3); CREATININE 1.2 mg/dL (0.6-1.3); EOSINOPHILS # (AUTO) 0.5 10^3/uL (0.0-0.7); EOSINOPHILS % (AUTO) 5.1 %; HCT - HEMATOCRIT 45.2 % (42.0-52.0); HGB - HEMOGLOBIN 14.5 g/dL (14.0-18.0); LYMPHOCYTES # (AUTO) 2.2 10^3/uL (1.5-3.5); LYMPHOCYTES % (AUTO) 23.4 %; MEAN CORPUSCULAR HEMOGLOBIN 29.3 pg (27.0-31.0); MEAN CORPUSCULAR HGB CONC 32.1 g/dL (32.0-36.0); MEAN CORPUSCULAR VOLUME 91.3 fL (80.0-94.0); MEAN PLATELET VOLUME 11.7 fL (7.4-11.4); MONOCYTES # (AUTO) 0.6 10^3/uL (0.0-1.0); MONOCYTES % (AUTO) 6.9 %; NEUTROPHILS # (AUTO) 5.9 10^3/uL (1.5-6.6); NEUTROPHILS % (AUTO) 63.7 %; PLT - PLATELET COUNT 301 10^3/uL (130-450); POTASSIUM 4.5 mmol/L (3.5-4.5); RED BLOOD COUNT 4.95 10^6/uL (4.70-6.10); RED CELL DISTRIBUTION WIDTH 14.3 % (12.0-15.0); TOTAL PROTEIN 7.8 g/dL (6.4-8.9); WHITE BLOOD COUNT 9.3 x10^3/uL (4.8-10.8)
[2022-11-14 21:07] LABS: ESTIMATED AVERAGE GLUCOSE 137 mg/dL (70-100); HEMOGLOBIN A1c% 6.4 % (4.27-6.07)
== END 2022-11-14 13:53 | disposition home or self-care (01) ==
LOC: LAB.N 13:52
PROVIDERS: ATTEND Nurse Practitioner
DX: E11.9 Type 2 diabetes mellitus without complications (principal); R06.02 Shortness of breath
CPT/HCPCS: 36415; 80053; 83036; 83880; 85025

== ENCOUNTER 2022-12-05 11:53 | Outpatient (CLI) | payer MEDICAID ==
--- NOTE | 2022-12-05 17:17 | CT Report ---
PROCEDURE: Low Dose Lung Cancer Screen INDICATIONS: TOBACCO DEPENDENCE TECHNIQUE: A CT scan of the chest was performed. Intravenous contrast media was not administered. Images were re corded and evaluated at appropriate window settings. Reformats: axial MIP of the chest, coronal and s agittal. For radiation dose reduction, the following was used: automated exposure control, adjustment of mA and/or kV according to patient size. COMPARISON: CT abdomen pelvis 11/17/2018. FINDINGS: Image quality: Excellent. Prior cancer history: Unsure. Lungs and pleura: Moderate right pleural effusion. No pneumothorax. Right compressive atelectasis. Left major fissure pulmonary nodule measuring 0.4 cm, (3/197), possibly remotely present in 2019 but only partially visualized. Left upper lobe pulmonary nodule measuring 0.4 cm, (3/181). Trace secretions in the trachea. Mediastinum: Heart size is normal. Moderate coronary artery calcifications. No pericardial effusion. No large vessel abnormality. No mediastinal adenopathy by size criteria. Chest wall and lower neck: Thyroid is unremarkable. No axillary or supraclavicular adenopathy by size . Bones: No aggressive osseous abnormality. Bridging vertebral body osteophytes. Upper Abdomen: Unremarkable. IMPRESSION: Small pulmonary nodules measuring 0.4 cm or less. Lung RAD: 2 - Benign. Recommendation: Continue annual screening in 12 Months with LDCT Non-Lung Significant Findings: Coronary Arterial Calcification - Moderate or Severe. Moderate right pleural effusion. Reviewed by: Jeremy Darby MD on 12/05/2022 5:16 PM PDT Approved by: Jeremy Darby MD on 12/05/2022 5:16 PM PDT Station ID: [id number]
== END 2022-12-05 11:54 | disposition home or self-care (01) ==
LOC: DI 11:53
PROVIDERS: ATTEND Nurse Practitioner
DX: Z12.2 Encounter for screening for malignant neoplasm of respiratory organs (principal); R91.8 Other nonspecific abnormal finding of lung field; F17.200 Nicotine dependence, unspecified, uncomplicated

== ENCOUNTER 2023-01-02 09:11 | Outpatient (CLI) | payer MEDICAID ==
[2023-01-02] MEDS ORDERED: ALBUTEROL 1 PUFF INH STA (11:20)
== END 2023-01-02 09:12 | disposition home or self-care (01) ==
LOC: RT 09:11
PROVIDERS: ATTEND Nurse Practitioner
DX: R06.02 Shortness of breath (principal)
CPT/HCPCS: 94060

== ENCOUNTER 2023-04-11 08:00 | Outpatient (CLI) | payer MEDICAID | END 2023-04-11 23:59 | disposition home or self-care (01) | LOC: LAB.N 08:00 | PROVIDERS: ATTEND Family Medicine | DX: R30.0 Dysuria (principal) | CPT/HCPCS: 87086 ==

== ENCOUNTER 2023-07-02 08:30 | Outpatient (CLI) | payer MEDICAID | END 2023-07-02 08:45 | disposition home or self-care (01) | LOC: LAB.N 08:30 | PROVIDERS: ATTEND Physician Assistant Medical | DX: N39.0 Urinary tract infection, site not specified (principal) | CPT/HCPCS: 87086 ==

== ENCOUNTER 2023-08-12 08:00 | Outpatient (CLI) | payer MEDICAID ==
[2023-08-13 12:01] LABS: BILIRUBIN,URINE NEGATIVE (NEGATIVE); GLUCOSE, URINE (UA) NEGATIVE (NEGATIVE); KETONES,URINE (UA) NEGATIVE (NEGATIVE); LEUKOCYTE ESTERASE, URINE NEGATIVE (NEGATIVE); NITRITE,URINE NEGATIVE (NEGATIVE); OCCULT BLOOD,URINE NEGATIVE (NEGATIVE); PH,URINE 5.5 PH (5.0-7.5); PROTEIN,URINE NEGATIVE (NEGATIVE); UROBILINOGEN,URINE 0.2 (NORMAL) E.U./dL (NORMAL)
[2023-08-13 12:10] LABS: BACTERIA,URINE None Seen /HPF (None Seen); CLARITY,URINE CLEAR (CLEAR); RBC,URINE 0-5 /HPF (0-5); SQUAMOUS EPITHELIAL CELL,UR NONE SEEN (<= Few); WBC,URINE 0-3 /HPF (0-3)
== END 2023-08-12 08:01 | disposition home or self-care (01) ==
LOC: LAB.WCP 08:00
PROVIDERS: ATTEND Nurse Practitioner
DX: N39.0 Urinary tract infection, site not specified (principal)
CPT/HCPCS: 81001; 87086